=== PATIENT | male | born 1960 | race African-American/Black ===

== ENCOUNTER 2021-03-29 01:40 | Inpatient (IN) | payer MEDICAID ==
[~2021-03-29] VITALS: Ht 182.9 cm; Wt 99.8 kg
[2021-03-29] VITALS (71 sets, daily range): BP systolic 100–186; BP diastolic 50–97
[2021-03-29] MEDS: LEVETIRACETAM 500MG PREMIX 100 ML IV SCH ×3 (00:50→22:00)
[2021-03-29] MEDS ORDERED: NALOXONE HCL 1 MG/ML 2ML VIAL IV ONE (01:45)
[2021-03-29] MEDS ORDERED: ONDANSETRON HCL 4MG/2ML INJ IV STA (01:47)
[2021-03-29] MEDS ORDERED: NALOXONE HCL 0.4 MG/ML 1ML VIAL IV PRN (02:00)
[2021-03-29] MEDS ORDERED: NICARDIPINE 100 MG in SODIUM CHLORIDE 0.9% 60 ML IV ONE ×2 (02:00→02:15)
[2021-03-29] MEDS ORDERED: SODIUM CHLORIDE 0.9% 1,000 ML IV ONE (02:00)
[2021-03-29] MEDS ORDERED: LABETALOL 5MG/ML SYR 20 MG/4 ML SYRINGE IV ONE ×2 (02:00→02:15)
[2021-03-29] MEDS ORDERED: LEVETIRACETAM 500MG PREMIX 100 ML IV ONE (02:00)
[2021-03-29] MEDS ORDERED: ETOMIDATE 2MG/ML 10ML VIAL IV ONE ×2 (02:00→08:49)
[2021-03-29] MEDS ORDERED: PROPOFOL 10MG/ML 100ML 100 ML IV ONE (02:00)
[2021-03-29] MEDS ORDERED: SUCCINYLCHOLINE CHLORIDE 200MG/10ML IV ONE ×2 (02:00→08:49)
[2021-03-29] MEDS ORDERED: VECURONIUM BROMIDE 10 MG/VIAL IV ONE ×2 (02:15→08:49)
[2021-03-29 02:32] LABS: BASOPHILS % 0.4 % (0.0-2.0); EOSINOPHILS % 0.2 % (0.0-5.0); HEMATOCRIT. 41.4 % (42.0-52.0); HEMOGLOBIN. 13.6 g/dL (14.0-18.0); LYMPHOCYTES % 21.1 % (20.0-50.0); MEAN CORPUSCULAR HEMOGLOBIN 30.4 pg (28.0-32.0); MEAN CORPUSCULAR VOLUME 92.5 fL (80.0-94.0); MEAN PLATELET VOLUME 7.7 fl (7.4-10.4); MONOCYTES % 10.7 % (2.0-8.0); NEUTROPHILS % 67.6 % (40.0-76.0); PLATELET 307 x1000/uL (130-400); RED BLOOD CELL COUNT 4.48 mill/uL (4.7-6.1); RED CELL DISTRIBUTION WIDTH 15.4 % (11.6-14.6)
[2021-03-29 02:38] LABS: PROTHROMBIN TIME 11.2 sec (9.6-11.0)
[2021-03-29 02:40] LABS: CHLORIDE 109 mEq/L (98-107)
[2021-03-29] MEDS ORDERED: NITROPRUSSIDE 50 MG in DEXT 5% WATER 248 ML IV STA (02:40)
[2021-03-29 02:44] LABS: ETHANOL BLOOD < 10 mg/dL
[2021-03-29] MEDS ORDERED: MANNITOL 20% 250 ML IV ONE (02:45)
[2021-03-29] MEDS ORDERED: DEXAMETHASONE 10 MG/ML VIAL IV ONE (02:45)
[2021-03-29] MEDS ORDERED: NITROPRUSSIDE 50 MG in DEXT 5% WATER 248 ML IV SCH (03:00)
[2021-03-29 03:15] LABS: BG BASE EXCESS 1.4 mmol/L (-2.0-2.0); BG CARBOXYHEMOGLOBIN 4.4 % (0.5-1.5); BG DEOXYHEMOGLOBIN 0.4 % (0.0-5.0); BG FRACTION INSPIRED OXYGEN 100; BG HCO3 ACT 26.3 mmol/L (22.0-26.0); BG METHEMOGLOBIN 0.3 % (0.0-1.5); BG OXYGEN SATURATION 99.6 % (92.0-98.5); BG OXYHEMOGLOBIN 94.9 % (94.0-97.0); BG PCO2 42.4 mmHg (35.0-45.0); BG PO2 352.5 mmHg (75.0-100.0); BG SAMPLE SITE RIGHT RADIAL; BG TOTAL HEMOGLOBIN 13.9 g/dL (12.0-18.0); BG VENT MODE VENT - AC
[2021-03-29] MEDS ORDERED: MANNITOL 12.5G (25%) VIAL 50ML IV SCH (03:15)
[2021-03-29] MEDS ORDERED: PROPOFOL 10MG/ML 100ML 100 ML IV PRN (03:15)
[2021-03-29] MEDS ORDERED: NICARDIPINE 40MG/200ML PREMIX 200 ML IV PRN (03:45)
[2021-03-29] MEDS ORDERED: SODIUM CHLORIDE 0.9% 1,000 ML IV SCH (03:45)
[2021-03-29 03:48] LABS: CLARITY URINE CLEAR (CLEAR); COLOR URINE YELLOW (YELLOW); KETONES URINE TRACE (NEGATIVE); LEUKOCYTE ESTERASE URINE NEGATIVE (NEGATIVE); NITRITE URINE NEGATIVE (NEGATIVE); OCCULT BLOOD URINE NEGATIVE (NEGATIVE); PH URINE 7.5 (4.5-8.0); PROTEIN URINE NEGATIVE (NEGATIVE); SPECIFIC GRAVITY URINE 1.011 (1.005-1.030); UROBILINOGEN URINE 0.2 E.U./dL (0.2-1.0)
[2021-03-29 04:10] LABS: *AMPHETAMINES SCREEN URINE NEGATIVE (NEGATIVE); *BARBITURATES SCREEN URINE NEGATIVE (NEGATIVE)
[2021-03-29 04:11] LABS: *BENZODIAZEPINES SCREEN URINE NEGATIVE (NEGATIVE); *COCAINE SCREEN URINE PRESUMTIVE POSITIVE (NEGATIVE); CANNABINOID URINE SCREEN NEGATIVE (NEGATIVE); METHADONE URINE SCREEN NEGATIVE (NEGATIVE); OPIATES URINE SCREEN NEGATIVE (NEGATIVE); PHENCYCLIDINE URINE SCREEN NEGATIVE (NEGATIVE)
[2021-03-29 05:14] LABS: HEMATOCRIT. 39.8 % (42.0-52.0); HEMOGLOBIN. 13.2 g/dL (14.0-18.0); MEAN CORPUSCULAR HEMOGLOBIN 30.7 pg (28.0-32.0); MEAN CORPUSCULAR VOLUME 92.7 fL (80.0-94.0); MEAN PLATELET VOLUME 7.7 fl (7.4-10.4); PLATELET 259 x1000/uL (130-400); RED BLOOD CELL COUNT 4.29 mill/uL (4.7-6.1); RED CELL DISTRIBUTION WIDTH 14.9 % (11.6-14.6)
[2021-03-29 05:21] LABS: PHOSPHORUS 2.1 mg/dL (2.5-4.9)
[2021-03-29] MEDS: DEXT 5%/LACTATED RINGERS 1,000 ML IV SCH ×2 (06:00→20:00)
[2021-03-29] MEDS ORDERED: NICARDIPINE 100 MG in SODIUM CHLORIDE 0.9% 60 ML IV PRN (06:00)
[2021-03-29] MEDS: DEXAMETHASONE 4MG/ML 1ML VIAL IV SCH ×3 (06:44→17:48)
[2021-03-29] MEDS ORDERED: MORPHINE SULFATE 4 MG/ML CPJ (NOT FOR IM USE) IV ONE (07:53)
[2021-03-29 07:56] LABS: PLATELET ESTIMATE NORMAL
[2021-03-29] MEDS ORDERED: GENTAMICIN SULF 40MG/ML 2ML VIAL ONE (08:00)
[2021-03-29] MEDS ORDERED: MANNITOL 20% (20GM/100ML) BAG 500ML PREMIX IV SCH (08:00)
[2021-03-29] MEDS ORDERED: MANNITOL 20% 500 ML IV SCH (08:00)
[2021-03-29] MEDS ORDERED: LACTATED RINGERS 3,000 ML IV ONE (08:01)
[2021-03-29] MEDS ORDERED: BACITRACIN 15GM TUBE TOP ONE (08:01)
[2021-03-29] MEDS ORDERED: THROMBIN (BOVINE) 5000 UNITS/VIAL TOP ONE (08:01)
[2021-03-29] MEDS ORDERED: LIDOCAINE HCL/EPINEPHRINE 1%-EPI 1:100,000 20 ML VIAL ONE (08:01)
[2021-03-29] MEDS ORDERED: SODIUM CHLORIDE 0.9% 10ML VIAL ONE (08:49)
[2021-03-29] MEDS ORDERED: MANNITOL 20% 0 ML IV ONE (09:01)
[2021-03-29] MEDS ORDERED: DEXAMETHASONE 4MG/ML 1ML VIAL ONE (09:10)
[2021-03-29] MEDS: MORPHINE SULFATE 2 MG/ML CPJ (NOT FOR IM USE) IV PRN ×4 (10:22→23:45)
[2021-03-29] MEDS: PROPOFOL 10MG/ML 100ML 100 ML IV PRN ×4 (10:28→20:18)
[2021-03-29] MEDS: NICARDIPINE 100 MG in SODIUM CHLORIDE 0.9% 60 ML IV PRN ×2 (10:29→20:13)
[2021-03-29] MEDS: CEFAZOLIN 1000MG PREMIX 50 ML IV SCH ×2 (11:08→18:46)
[2021-03-29] MEDS: PANTOPRAZOLE SODIUM 40 MG/VIAL IV SCH (11:08)
[2021-03-29] MEDS ORDERED: BLOOD SUGAR DIAGNOSTIC STRIP TEST SCH (11:30)
[2021-03-29] MEDS ORDERED: DEXTROSE 50% WATER 50ML SYRINGE IV PRN (11:30)
[2021-03-29] MEDS: BLOOD SUGAR DIAGNOSTIC STRIP TEST SCH ×2 (11:47→17:44)
[2021-03-29] MEDS: INSULIN LISPRO 100 UNITS/ML SUBCUT SCH ×2 (11:53→17:44)
[2021-03-29] MEDS ORDERED: INSULIN LISPRO 100 UNITS/ML SUBCUT SCH (12:00)
[2021-03-29] MEDS ORDERED: CEFAZOLIN SODIUM 1000MG/VIAL IV SCH (14:00)
[2021-03-29] MEDS ORDERED: NALOXONE HCL 0.4MG/ML VIAL IV PRN (21:15)
[2021-03-30] VITALS (97 sets, daily range): BP systolic 82–169; BP diastolic 47–80
[2021-03-30] MEDS: DEXAMETHASONE 4MG/ML 1ML VIAL IV SCH ×4 (01:00→17:20)
[2021-03-30] MEDS: PROPOFOL 10MG/ML 100ML 100 ML IV PRN ×8 (01:50→21:14)
[2021-03-30] MEDS: CEFAZOLIN 1000MG PREMIX 50 ML IV SCH ×3 (03:43→17:56)
[2021-03-30] MEDS: NICARDIPINE 100 MG in SODIUM CHLORIDE 0.9% 60 ML IV PRN ×3 (04:00→18:59)
[2021-03-30] MEDS: MORPHINE SULFATE 2 MG/ML CPJ (NOT FOR IM USE) IV PRN ×2 (04:21→16:49)
[2021-03-30 05:50] LABS: HEMATOCRIT. 35.1 % (42.0-52.0); HEMOGLOBIN. 11.4 g/dL (14.0-18.0); MEAN CORPUSCULAR HEMOGLOBIN 30.1 pg (28.0-32.0); MEAN CORPUSCULAR VOLUME 92.5 fL (80.0-94.0); PLATELET 244 x1000/uL (130-400); RED BLOOD CELL COUNT 3.79 mill/uL (4.7-6.1)
[2021-03-30] MEDS: INSULIN LISPRO 100 UNITS/ML SUBCUT SCH ×4 (06:00→17:03)
[2021-03-30] MEDS: BLOOD SUGAR DIAGNOSTIC STRIP TEST SCH ×4 (06:00→17:03)
[2021-03-30] MEDS ORDERED: MORPHINE SULFATE 2 MG/ML CPJ (NOT FOR IM USE) IV SCH (06:15)
[2021-03-30] MEDS: IPRATROPIUM/ALBUTEROL 0.5-3(2.5)MG/3ML NEB HHN PRN ×3 (08:25→16:39)
[2021-03-30] MEDS: LEVETIRACETAM 500MG PREMIX 100 ML IV SCH ×2 (09:53→21:12)
[2021-03-30] MEDS: PANTOPRAZOLE SODIUM 40 MG/VIAL IV SCH (09:53)
[2021-03-30 10:01] LABS: BG BASE EXCESS -2.6 mmol/L (-2.0-2.0); BG CARBOXYHEMOGLOBIN 0.6 % (0.5-1.5); BG FRACTION INSPIRED OXYGEN 40; BG HCO3 ACT 21.6 mmol/L (22.0-26.0); BG METHEMOGLOBIN 0.1 % (0.0-1.5); BG OXYHEMOGLOBIN 98.3 % (94.0-97.0); BG PCO2 35.4 mmHg (35.0-45.0); BG PH 7.403 (7.350-7.450); BG PO2 147.7 mmHg (75.0-100.0); BG TOTAL HEMOGLOBIN 11.8 g/dL (12.0-18.0); BG VENT MODE VENT - AC
[2021-03-30] MEDS: DEXT 5%/LACTATED RINGERS 1,000 ML IV SCH (12:09)
[2021-03-30 14:44] LABS: PLATELET ESTIMATE NORMAL
[2021-03-30] MEDS: HYDRALAZINE 20MG/ML VIAL IV PRN (17:20)
[2021-03-31] VITALS (100 sets, daily range): BP systolic 95–150; BP diastolic 50–96
[2021-03-31] MEDS: BLOOD SUGAR DIAGNOSTIC STRIP TEST SCH ×5 (00:13→23:43)
[2021-03-31] MEDS: DEXAMETHASONE 4MG/ML 1ML VIAL IV SCH ×3 (00:17→12:17)
[2021-03-31] MEDS: CEFAZOLIN 1000MG PREMIX 50 ML IV SCH ×3 (02:11→18:17)
[2021-03-31] MEDS: PROPOFOL 10MG/ML 100ML 100 ML IV PRN ×7 (02:11→23:42)
[2021-03-31] MEDS: INSULIN LISPRO 100 UNITS/ML SUBCUT SCH ×5 (05:26→23:43)
[2021-03-31] MEDS: DEXT 5%/LACTATED RINGERS 1,000 ML IV SCH ×2 (05:29→15:38)
[2021-03-31 06:22] LABS: HEMATOCRIT. 34.3 % (42.0-52.0); HEMOGLOBIN. 10.9 g/dL (14.0-18.0); MEAN CORPUSCULAR HEMOGLOBIN 29.6 pg (28.0-32.0); MEAN CORPUSCULAR VOLUME 93.1 fL (80.0-94.0); MEAN PLATELET VOLUME 8.3 fl (7.4-10.4); PLATELET 204 x1000/uL (130-400); RED BLOOD CELL COUNT 3.69 mill/uL (4.7-6.1); RED CELL DISTRIBUTION WIDTH 15.3 % (11.6-14.6)
[2021-03-31] MEDS ORDERED: LIDOCAINE HCL 1% 30ML VIAL (10MG/ML) ONE (08:05)
[2021-03-31] MEDS: LEVETIRACETAM 500MG PREMIX 100 ML IV SCH ×2 (08:09→20:29)
[2021-03-31] MEDS: PANTOPRAZOLE SODIUM 40 MG/VIAL IV SCH (08:09)
[2021-03-31 11:08] LABS: PLATELET ESTIMATE NORMAL
[2021-03-31] MEDS: NICARDIPINE 100 MG in SODIUM CHLORIDE 0.9% 60 ML IV PRN ×2 (13:43→22:07)
[2021-03-31] MEDS: MORPHINE SULFATE 2 MG/ML CPJ (NOT FOR IM USE) IV PRN (20:29)
[2021-04-01] VITALS (80 sets, daily range): BP systolic 106–175; BP diastolic 51–85
[2021-04-01] MEDS: CEFAZOLIN 1000MG PREMIX 50 ML IV SCH ×3 (03:11→18:48)
[2021-04-01] MEDS: PROPOFOL 10MG/ML 100ML 100 ML IV PRN ×7 (03:12→22:19)
[2021-04-01 05:51] LABS: HEMATOCRIT. 34.8 % (42.0-52.0); HEMOGLOBIN. 11.5 g/dL (14.0-18.0); MEAN CORPUSCULAR HEMOGLOBIN 31.2 pg (28.0-32.0); MEAN CORPUSCULAR VOLUME 93.9 fL (80.0-94.0); MEAN PLATELET VOLUME 8.2 fl (7.4-10.4); PLATELET 201 x1000/uL (130-400); RED CELL DISTRIBUTION WIDTH 15.1 % (11.6-14.6)
[2021-04-01] MEDS: INSULIN LISPRO 100 UNITS/ML SUBCUT SCH ×4 (06:00→23:23)
[2021-04-01] MEDS: BLOOD SUGAR DIAGNOSTIC STRIP TEST SCH ×4 (06:03→23:23)
[2021-04-01] MEDS: NICARDIPINE 100 MG in SODIUM CHLORIDE 0.9% 60 ML IV PRN ×3 (06:04→18:17)
[2021-04-01] MEDS: PANTOPRAZOLE SODIUM 40 MG/VIAL IV SCH (08:50)
[2021-04-01] MEDS: HYDRALAZINE 20MG/ML VIAL IV PRN (08:50)
[2021-04-01] MEDS: LEVETIRACETAM 500MG PREMIX 100 ML IV SCH ×2 (08:51→21:02)
[2021-04-01] MEDS: MORPHINE SULFATE 2 MG/ML CPJ (NOT FOR IM USE) IV PRN (10:23)
[2021-04-01] MEDS: DEXT 5%/LACTATED RINGERS 1,000 ML IV SCH (11:35)
[2021-04-01 13:50] LABS: PLATELET ESTIMATE NORMAL
[2021-04-02] VITALS (100 sets, daily range): BP systolic 92–167; BP diastolic -9–89
[2021-04-02] MEDS: PROPOFOL 10MG/ML 100ML 100 ML IV PRN ×7 (00:40→20:09)
[2021-04-02] MEDS: CEFAZOLIN 1000MG PREMIX 50 ML IV SCH ×3 (02:00→18:03)
[2021-04-02] MEDS: MORPHINE SULFATE 2 MG/ML CPJ (NOT FOR IM USE) IV PRN ×7 (02:25→23:29)
[2021-04-02] MEDS: HYDRALAZINE 20MG/ML VIAL IV PRN ×5 (02:58→21:57)
[2021-04-02] MEDS: NICARDIPINE 100 MG in SODIUM CHLORIDE 0.9% 60 ML IV PRN ×3 (03:38→18:04)
[2021-04-02] MEDS: INSULIN LISPRO 100 UNITS/ML SUBCUT SCH ×4 (06:00→23:46)
[2021-04-02] MEDS: BLOOD SUGAR DIAGNOSTIC STRIP TEST SCH ×4 (06:25→23:45)
[2021-04-02 08:11] LABS: CHLORIDE 121 mEq/L (98-107)
[2021-04-02 08:29] LABS: BG BASE EXCESS 0.9 mmol/L (-2.0-2.0); BG CARBOXYHEMOGLOBIN 0.3 % (0.5-1.5); BG DEOXYHEMOGLOBIN 1.8 % (0.0-5.0); BG HCO3 ACT 24.4 mmol/L (22.0-26.0); BG METHEMOGLOBIN 0.3 % (0.0-1.5); BG OXYGEN SATURATION 98.2 % (92.0-98.5); BG OXYHEMOGLOBIN 97.6 % (94.0-97.0); BG PCO2 35.3 mmHg (35.0-45.0); BG PH 7.458 (7.350-7.450); BG PO2 112.9 mmHg (75.0-100.0); BG SAMPLE SITE ALINE; BG TOTAL HEMOGLOBIN 12.5 g/dL (12.0-18.0); BG VENT MODE VENT - AC
[2021-04-02] MEDS: PANTOPRAZOLE SODIUM 40 MG/VIAL IV SCH (10:38)
[2021-04-02] MEDS: ENALAPRIL 2.5MG TABLET PO SCH ×2 (10:39→20:08)
[2021-04-02] MEDS: DEXT 5%/LACTATED RINGERS 1,000 ML IV SCH ×2 (10:40→23:55)
[2021-04-02] MEDS: LEVETIRACETAM 500MG PREMIX 100 ML IV SCH ×2 (10:40→20:08)
[2021-04-02] MEDS: DOCUSATE SODIUM SUGAR FREE 100MG/10ML UDC NG SCH (17:54)
[2021-04-03] VITALS (101 sets, daily range): BP systolic 95–170; BP diastolic 42–80
[2021-04-03] MEDS: PROPOFOL 10MG/ML 100ML 100 ML IV PRN ×7 (00:05→20:14)
[2021-04-03] MEDS: CEFAZOLIN 1000MG PREMIX 50 ML IV SCH ×2 (02:01→11:41)
[2021-04-03] MEDS: HYDRALAZINE 20MG/ML VIAL IV PRN ×3 (02:49→13:03)
[2021-04-03] MEDS: NICARDIPINE 100 MG in SODIUM CHLORIDE 0.9% 60 ML IV PRN ×4 (03:01→23:58)
[2021-04-03] MEDS ORDERED: MORPHINE SULFATE 2 MG/ML CPJ (NOT FOR IM USE) IV PRN (05:00)
[2021-04-03] MEDS: INSULIN LISPRO 100 UNITS/ML SUBCUT SCH ×4 (06:00→23:16)
[2021-04-03] MEDS: BLOOD SUGAR DIAGNOSTIC STRIP TEST SCH ×4 (06:06→23:16)
[2021-04-03 06:28] LABS: BASOPHILS % 0.1 % (0.0-2.0); EOSINOPHILS % 0.1 % (0.0-5.0); HEMATOCRIT. 35.4 % (42.0-52.0); HEMOGLOBIN. 11.4 g/dL (14.0-18.0); LYMPHOCYTES % 8.8 % (20.0-50.0); MEAN CORPUSCULAR HEMOGLOBIN 30.1 pg (28.0-32.0); MEAN CORPUSCULAR VOLUME 93.8 fL (80.0-94.0); MEAN PLATELET VOLUME 8.6 fl (7.4-10.4); MONOCYTES % 11.4 % (2.0-8.0); NEUTROPHILS % 79.6 % (40.0-76.0); PLATELET 170 x1000/uL (130-400); RED BLOOD CELL COUNT 3.77 mill/uL (4.7-6.1); RED CELL DISTRIBUTION WIDTH 14.8 % (11.6-14.6)
[2021-04-03 07:17] LABS: CHLORIDE 118 mEq/L (98-107)
[2021-04-03] MEDS: DOCUSATE SODIUM SUGAR FREE 100MG/10ML UDC NG SCH (08:43)
[2021-04-03] MEDS: ENALAPRIL 2.5MG TABLET PO SCH (08:44)
[2021-04-03] MEDS: LEVETIRACETAM 500MG PREMIX 100 ML IV SCH ×2 (08:44→21:40)
[2021-04-03] MEDS: PANTOPRAZOLE SODIUM 40 MG/VIAL IV SCH (09:22)
[2021-04-03 10:02] LABS: BG BASE EXCESS -4.1 mmol/L (-2.0-2.0); BG CARBOXYHEMOGLOBIN 1.1 % (0.5-1.5); BG DEOXYHEMOGLOBIN 1.8 % (0.0-5.0); BG FRACTION INSPIRED OXYGEN 40; BG METHEMOGLOBIN 0.2 % (0.0-1.5); BG OXYGEN SATURATION 98.2 % (92.0-98.5); BG OXYHEMOGLOBIN 96.9 % (94.0-97.0); BG PCO2 29.5 mmHg (35.0-45.0); BG PH 7.426 (7.350-7.450); BG PO2 120.9 mmHg (75.0-100.0); BG SAMPLE SITE ALINE; BG VENT MODE VENT - AC
[2021-04-03] MEDS: METOCLOPRAMIDE HCL 10MG/2ML VIAL IV SCH ×3 (11:41→23:26)
[2021-04-03] MEDS: MORPHINE SULFATE 2 MG/ML CPJ (NOT FOR IM USE) IV PRN ×2 (12:10→16:25)
[2021-04-03] MEDS ORDERED: PROPOFOL 10MG/ML 100ML 100 ML IV PRN (12:30)
[2021-04-03] MEDS: DEXTROSE 5% WATER 1,000 ML IV SCH (13:02)
[2021-04-03] MEDS: LACTULOSE 20G/30ML UDC PO PRN (13:03)
[2021-04-03] MEDS: HYDRALAZINE HCL 25MG TABLET PO SCH ×2 (13:03→21:40)
[2021-04-03] MEDS: ENALAPRIL 5MG TABLET PO SCH (21:40)
[2021-04-04] VITALS (99 sets, daily range): BP systolic 107–151; BP diastolic 60–91
[2021-04-04] MEDS: PROPOFOL 10MG/ML 100ML 100 ML IV PRN ×8 (00:03→18:34)
[2021-04-04] MEDS: HYDRALAZINE 20MG/ML VIAL IV PRN ×4 (01:37→18:21)
[2021-04-04] MEDS: MORPHINE SULFATE 2 MG/ML CPJ (NOT FOR IM USE) IV PRN ×5 (01:58→18:23)
[2021-04-04] MEDS: DEXTROSE 5% WATER 1,000 ML IV SCH ×2 (04:10→22:20)
[2021-04-04] MEDS: BLOOD SUGAR DIAGNOSTIC STRIP TEST SCH ×3 (05:32→18:23)
[2021-04-04] MEDS: METOCLOPRAMIDE HCL 10MG/2ML VIAL IV SCH ×2 (05:32→12:51)
[2021-04-04] MEDS: INSULIN LISPRO 100 UNITS/ML SUBCUT SCH ×3 (05:32→18:00)
[2021-04-04] MEDS: HYDRALAZINE HCL 25MG TABLET PO SCH ×3 (05:32→22:18)
[2021-04-04 07:18] LABS: BASOPHILS % 0.3 % (0.0-2.0); EOSINOPHILS % 0.5 % (0.0-5.0); HEMATOCRIT. 35.2 % (42.0-52.0); HEMOGLOBIN. 11.2 g/dL (14.0-18.0); LYMPHOCYTES % 7.1 % (20.0-50.0); MEAN CORPUSCULAR HEMOGLOBIN 30.2 pg (28.0-32.0); MEAN PLATELET VOLUME 8.6 fl (7.4-10.4); MONOCYTES % 12.2 % (2.0-8.0); NEUTROPHILS % 79.9 % (40.0-76.0); PLATELET 158 x1000/uL (130-400)
[2021-04-04] MEDS: NICARDIPINE 100 MG in SODIUM CHLORIDE 0.9% 60 ML IV PRN ×3 (07:24→18:17)
[2021-04-04] MEDS: IPRATROPIUM/ALBUTEROL 0.5-3(2.5)MG/3ML NEB HHN PRN ×2 (07:59→15:16)
[2021-04-04 08:06] LABS: CHLORIDE 118 mEq/L (98-107)
[2021-04-04] MEDS: PANTOPRAZOLE SODIUM 40 MG/VIAL IV SCH (08:21)
[2021-04-04] MEDS: LEVETIRACETAM 500MG PREMIX 100 ML IV SCH ×2 (08:21→22:17)
[2021-04-04] MEDS: ENALAPRIL 5MG TABLET PO SCH ×2 (08:21→22:18)
[2021-04-04] MEDS: DOCUSATE SODIUM SUGAR FREE 100MG/10ML UDC NG SCH (08:21)
[2021-04-04] MEDS: ACETAMINOPHEN 650MG/20.3ML UDC PO PRN ×2 (09:51→18:21)
[2021-04-04] MEDS: CEFEPIME 1,000 MG in DEXT 5% WATER 100 ML IV SCH (13:04)
[2021-04-04] MEDS: LACTULOSE 20G/30ML UDC PO PRN (14:51)
[2021-04-04] MEDS: LABETALOL 5MG/ML SYR 20 MG/4 ML SYRINGE IV PRN (16:06)
[2021-04-05] VITALS (99 sets, daily range): BP systolic 99–158; BP diastolic 57–96
[2021-04-05] MEDS: PROPOFOL 10MG/ML 100ML 100 ML IV PRN ×6 (00:33→23:06)
[2021-04-05] MEDS: CEFEPIME 1,000 MG in DEXT 5% WATER 100 ML IV SCH (01:09)
[2021-04-05] MEDS: BLOOD SUGAR DIAGNOSTIC STRIP TEST SCH ×5 (05:44→23:43)
[2021-04-05] MEDS: HYDRALAZINE HCL 25MG TABLET PO SCH ×3 (05:44→22:48)
[2021-04-05] MEDS: INSULIN LISPRO 100 UNITS/ML SUBCUT SCH ×5 (05:44→23:43)
[2021-04-05] MEDS: ACETAMINOPHEN 650MG/20.3ML UDC PO PRN ×3 (05:46→20:17)
[2021-04-05 05:48] LABS: BASOPHILS % 0.5 % (0.0-2.0); EOSINOPHILS % 1.1 % (0.0-5.0); HEMATOCRIT. 30.9 % (42.0-52.0); LYMPHOCYTES % 7.1 % (20.0-50.0); MEAN CORPUSCULAR HEMOGLOBIN 30.3 pg (28.0-32.0); MEAN CORPUSCULAR VOLUME 93.6 fL (80.0-94.0); MEAN PLATELET VOLUME 8.9 fl (7.4-10.4); MONOCYTES % 13.7 % (2.0-8.0); NEUTROPHILS % 77.6 % (40.0-76.0); PLATELET 164 x1000/uL (130-400); RED CELL DISTRIBUTION WIDTH 15.2 % (11.6-14.6)
[2021-04-05] MEDS: HYDRALAZINE 20MG/ML VIAL IV PRN ×3 (06:05→13:10)
[2021-04-05] MEDS: NICARDIPINE 100 MG in SODIUM CHLORIDE 0.9% 60 ML IV PRN ×2 (07:59→11:36)
[2021-04-05] MEDS: DOCUSATE SODIUM SUGAR FREE 100MG/10ML UDC NG SCH (08:18)
[2021-04-05] MEDS: PANTOPRAZOLE SODIUM 40 MG/VIAL IV SCH (08:18)
[2021-04-05] MEDS: ENALAPRIL 5MG TABLET PO SCH ×2 (08:19→20:17)
[2021-04-05] MEDS: LEVETIRACETAM 500MG PREMIX 100 ML IV SCH ×2 (08:19→20:17)
[2021-04-05] MEDS: MORPHINE SULFATE 2 MG/ML CPJ (NOT FOR IM USE) IV PRN ×2 (08:35→13:15)
[2021-04-05] MEDS: LABETALOL 5MG/ML SYR 20 MG/4 ML SYRINGE IV PRN (08:36)
[2021-04-05 09:47] LABS: BG BASE EXCESS -4.4 mmol/L (-2.0-2.0); BG CARBOXYHEMOGLOBIN 1.3 % (0.5-1.5); BG DEOXYHEMOGLOBIN 0.4 % (0.0-5.0); BG FRACTION INSPIRED OXYGEN 35; BG HCO3 ACT 18.7 mmol/L (22.0-26.0); BG METHEMOGLOBIN 0.2 % (0.0-1.5); BG OXYGEN SATURATION 99.6 % (92.0-98.5); BG OXYHEMOGLOBIN 98.1 % (94.0-97.0); BG PCO2 28.2 mmHg (35.0-45.0); BG PH 7.439 (7.350-7.450); BG PO2 173.8 mmHg (75.0-100.0); BG SAMPLE SITE RIGHT RADIAL; BG TOTAL HEMOGLOBIN 11.1 g/dL (12.0-18.0); BG VENT MODE VENT - AC
[2021-04-05] MEDS: LACTULOSE 20G/30ML UDC PO PRN ×2 (13:09→21:54)
[2021-04-05] MEDS: CEFEPIME 2,000 MG in DEXT 5% WATER 100 ML IV SCH (13:09)
[2021-04-05] MEDS: LABETALOL HCL 100MG TABLET PO SCH ×2 (13:11→21:00)
[2021-04-05] MEDS: DEXTROSE 5% WATER 1,000 ML IV SCH (13:12)
[2021-04-05] MEDS: DEXT 5%/0.45% NACL 1000ML 1,000 ML IV SCH (16:55)
[2021-04-05 18:00] LABS: CLARITY URINE TURBID (CLEAR); COLOR URINE DARK YELLOW (YELLOW); KETONES URINE TRACE (NEGATIVE); LEUKOCYTE ESTERASE URINE 1+ (NEGATIVE); NITRITE URINE POSITIVE (NEGATIVE); OCCULT BLOOD URINE 1+ (NEGATIVE); PROTEIN URINE 1+ (NEGATIVE); SPECIFIC GRAVITY URINE 1.024 (1.005-1.030); UROBILINOGEN URINE 0.2 E.U./dL (0.2-1.0)
[2021-04-05] MEDS ORDERED: VANCOMYCIN 2,000 MG in DEXT 5% WATER 500 ML IV NR (19:30)
[2021-04-06] VITALS (94 sets, daily range): BP systolic 102–169; BP diastolic 55–110
[2021-04-06] MEDS: CEFEPIME 2,000 MG in DEXT 5% WATER 100 ML IV SCH ×3 (00:18→23:28)
[2021-04-06] MEDS: HYDRALAZINE 20MG/ML VIAL IV PRN ×3 (00:18→08:01)
[2021-04-06] MEDS: MORPHINE SULFATE 2 MG/ML CPJ (NOT FOR IM USE) IV PRN ×4 (02:56→20:49)
[2021-04-06] MEDS: BLOOD SUGAR DIAGNOSTIC STRIP TEST SCH ×4 (05:15→23:28)
[2021-04-06] MEDS: INSULIN LISPRO 100 UNITS/ML SUBCUT SCH ×4 (05:15→23:28)
[2021-04-06] MEDS: HYDRALAZINE HCL 25MG TABLET PO SCH ×3 (05:16→22:16)
[2021-04-06 06:00] LABS: HEMATOCRIT. 30.9 % (42.0-52.0); HEMOGLOBIN. 9.8 g/dL (14.0-18.0); MEAN CORPUSCULAR HEMOGLOBIN 30.4 pg (28.0-32.0); MEAN CORPUSCULAR VOLUME 96.1 fL (80.0-94.0); MEAN PLATELET VOLUME 9.2 fl (7.4-10.4); PLATELET 184 x1000/uL (130-400); RED BLOOD CELL COUNT 3.22 mill/uL (4.7-6.1); RED CELL DISTRIBUTION WIDTH 15.4 % (11.6-14.6)
[2021-04-06] MEDS: PROPOFOL 10MG/ML 100ML 100 ML IV PRN ×6 (06:01→23:53)
[2021-04-06] MEDS: DOCUSATE SODIUM SUGAR FREE 100MG/10ML UDC NG SCH (08:39)
[2021-04-06] MEDS: PANTOPRAZOLE SODIUM 40 MG/VIAL IV SCH (08:39)
[2021-04-06] MEDS: LEVETIRACETAM 500MG PREMIX 100 ML IV SCH ×2 (08:39→20:12)
[2021-04-06] MEDS: LABETALOL HCL 100MG TABLET PO SCH ×2 (08:40→20:16)
[2021-04-06] MEDS: ENALAPRIL 5MG TABLET PO SCH (08:40)
[2021-04-06] MEDS: DEXT 5%/0.45% NACL 1000ML 1,000 ML IV SCH (08:40)
[2021-04-06] MEDS: DEXT 5%/0.9% NACL 1,000 ML IV SCH (11:43)
[2021-04-06 12:11] LABS: PLATELET ESTIMATE NORMAL
[2021-04-06] MEDS ORDERED: VANCOMYCIN 1 G PREMIX 200 ML IV SCH (15:00)
[2021-04-06] MEDS: ACETAMINOPHEN 650MG/20.3ML UDC PO PRN ×2 (16:57→23:18)
[2021-04-07] VITALS (101 sets, daily range): BP systolic 107–174; BP diastolic 67–103
[2021-04-07] MEDS: DEXT 5%/0.9% NACL 1,000 ML IV SCH ×2 (01:09→13:33)
[2021-04-07] MEDS: PROPOFOL 10MG/ML 100ML 100 ML IV PRN ×7 (03:26→21:23)
[2021-04-07] MEDS: HYDRALAZINE 20MG/ML VIAL IV PRN ×4 (03:29→19:38)
[2021-04-07] MEDS: MORPHINE SULFATE 2 MG/ML CPJ (NOT FOR IM USE) IV PRN ×5 (04:44→17:27)
[2021-04-07 05:30] LABS: HEMATOCRIT. 26.1 % (42.0-52.0); HEMOGLOBIN. 8.5 g/dL (14.0-18.0); MEAN CORPUSCULAR HEMOGLOBIN 30.4 pg (28.0-32.0); MEAN CORPUSCULAR VOLUME 93.4 fL (80.0-94.0); RED BLOOD CELL COUNT 2.79 mill/uL (4.7-6.1)
[2021-04-07] MEDS: BLOOD SUGAR DIAGNOSTIC STRIP TEST SCH ×4 (05:55→23:57)
[2021-04-07] MEDS: INSULIN LISPRO 100 UNITS/ML SUBCUT SCH ×3 (05:55→17:24)
[2021-04-07] MEDS: HYDRALAZINE HCL 25MG TABLET PO SCH ×3 (06:20→21:36)
[2021-04-07] MEDS: DOCUSATE SODIUM SUGAR FREE 100MG/10ML UDC NG SCH (08:08)
[2021-04-07] MEDS: ACETAMINOPHEN 650MG/20.3ML UDC PO PRN (08:08)
[2021-04-07] MEDS: PANTOPRAZOLE SODIUM 40 MG/VIAL IV SCH (08:08)
[2021-04-07] MEDS: LEVETIRACETAM 500MG PREMIX 100 ML IV SCH ×2 (08:10→20:34)
[2021-04-07] MEDS: LABETALOL HCL 100MG TABLET PO SCH ×2 (08:11→20:34)
[2021-04-07 09:57] LABS: MEAN PLATELET VOLUME 9.9 fl (7.4-10.4); PLATELET 170 x1000/uL (130-400)
[2021-04-07 10:15] LABS: PLATELET ESTIMATE NORMAL
[2021-04-07] MEDS: CEFEPIME 2,000 MG in DEXT 5% WATER 100 ML IV SCH (12:16)
[2021-04-07] MEDS: VANCOMYCIN 1250MG in DEXTROSE 5% WATER 250ML IV SCH (12:16)
[2021-04-07] MEDS: MEROPENEM 1,000 MG in SODIUM CHLORIDE 0.9% 100 ML IV SCH (15:02)
[2021-04-07] MEDS: NICARDIPINE 100 MG in SODIUM CHLORIDE 0.9% 60 ML IV PRN (18:07)
[2021-04-07] MEDS: SENNOSIDES/DOCUSATE SOD 8.6/50MG TABLET NG SCH (20:34)
[2021-04-08] VITALS (92 sets, daily range): BP systolic 99–168; BP diastolic 59–104
[2021-04-08] MEDS: PROPOFOL 10MG/ML 100ML 100 ML IV PRN ×4 (00:19→09:18)
[2021-04-08] MEDS: ACETAMINOPHEN 650MG/20.3ML UDC PO PRN ×3 (00:35→20:23)
[2021-04-08] MEDS: MEROPENEM 1,000 MG in SODIUM CHLORIDE 0.9% 100 ML IV SCH ×2 (03:09→15:35)
[2021-04-08] MEDS: DEXT 5%/0.9% NACL 1,000 ML IV SCH ×2 (03:09→16:55)
[2021-04-08] MEDS: NICARDIPINE 100 MG in SODIUM CHLORIDE 0.9% 60 ML IV PRN ×3 (03:28→20:40)
[2021-04-08 05:37] LABS: HEMATOCRIT. 26.7 % (42.0-52.0); HEMOGLOBIN. 8.5 g/dL (14.0-18.0); MEAN CORPUSCULAR HEMOGLOBIN 30.1 pg (28.0-32.0); MEAN CORPUSCULAR VOLUME 94.4 fL (80.0-94.0); MEAN PLATELET VOLUME 8.6 fl (7.4-10.4); PLATELET 245 x1000/uL (130-400); RED BLOOD CELL COUNT 2.83 mill/uL (4.7-6.1); RED CELL DISTRIBUTION WIDTH 14.8 % (11.6-14.6)
[2021-04-08] MEDS: HYDRALAZINE HCL 25MG TABLET PO SCH ×3 (05:56→21:07)
[2021-04-08] MEDS: BLOOD SUGAR DIAGNOSTIC STRIP TEST SCH ×3 (05:56→18:00)
[2021-04-08] MEDS: INSULIN LISPRO 100 UNITS/ML SUBCUT SCH ×4 (06:00→18:00)
[2021-04-08 06:08] LABS: HEPATITIS B SURFACE ANTIGEN NEGATIVE
[2021-04-08 07:28] LABS: PLATELET ESTIMATE NORMAL
[2021-04-08] MEDS: CITRIC ACID/SODIUM CITRATE SOLN 30ML UDC PO SCH ×3 (08:35→16:55)
[2021-04-08] MEDS: LABETALOL HCL 100MG TABLET PO SCH (08:35)
[2021-04-08] MEDS: PANTOPRAZOLE SODIUM 40 MG/VIAL IV SCH (08:35)
[2021-04-08] MEDS: LEVETIRACETAM 500MG PREMIX 100 ML IV SCH ×2 (08:35→21:06)
[2021-04-08] MEDS: DOCUSATE SODIUM SUGAR FREE 100MG/10ML UDC NG SCH (08:36)
[2021-04-08] MEDS: POLYETHYLENE GLYCOL 3350 (17GM) 1 DOSE PACK NG SCH (08:36)
[2021-04-08] MEDS ORDERED: LIDOCAINE HCL/EPINEPHRINE 1%-EPI 1:100,000 20 ML VIAL ONE (08:57)
[2021-04-08] MEDS ORDERED: CLONIDINE 0.1MG TABLET PO PRN (10:00)
[2021-04-08] MEDS ORDERED: VECURONIUM BROMIDE 10 MG/VIAL IV ONE (10:21)
[2021-04-08] MEDS ORDERED: SODIUM CHLORIDE 0.9% 10ML VIAL ONE (10:21)
[2021-04-08] MEDS ORDERED: GLYCOPYRROLATE 0.2 MG/ML 2ML VIAL ONE (11:06)
[2021-04-08] MEDS ORDERED: NEOSTIGMINE METHYLSULFATE 1MG/ML 10 ML VIAL ONE (11:12)
[2021-04-08] MEDS: VANCOMYCIN 1250MG in DEXTROSE 5% WATER 250ML IV SCH (12:00)
[2021-04-08] MEDS: HYDRALAZINE 20MG/ML VIAL IV PRN ×2 (12:19→16:55)
[2021-04-08] MEDS: AMLODIPINE 10MG TABLET PO SCH (12:19)
[2021-04-08] MEDS ORDERED: CLONIDINE 0.1MG TABLET PO SCH (14:00)
[2021-04-08] MEDS: CLONIDINE 0.2MG TABLET PO PRN (20:23)
[2021-04-08] MEDS: SENNOSIDES/DOCUSATE SOD 8.6/50MG TABLET NG SCH (21:07)
[2021-04-09] VITALS (90 sets, daily range): BP systolic 107–155; BP diastolic 63–99
[2021-04-09] MEDS: BLOOD SUGAR DIAGNOSTIC STRIP TEST SCH ×4 (00:48→18:07)
[2021-04-09] MEDS: HYDRALAZINE 20MG/ML VIAL IV PRN (01:08)
[2021-04-09] MEDS: NICARDIPINE 100 MG in SODIUM CHLORIDE 0.9% 60 ML IV PRN ×3 (02:27→17:38)
[2021-04-09] MEDS: CLONIDINE 0.2MG TABLET PO PRN ×2 (03:19→21:04)
[2021-04-09] MEDS: ACETAMINOPHEN 650MG/20.3ML UDC PO PRN ×2 (03:19→12:46)
[2021-04-09] MEDS: MEROPENEM 1,000 MG in SODIUM CHLORIDE 0.9% 100 ML IV SCH ×2 (03:19→15:48)
[2021-04-09] MEDS: INSULIN LISPRO 100 UNITS/ML SUBCUT SCH ×4 (06:00→18:00)
[2021-04-09] MEDS: HYDRALAZINE HCL 25MG TABLET PO SCH (06:12)
[2021-04-09 06:13] LABS: PHOSPHORUS 1.8 mg/dL (2.5-4.9)
[2021-04-09] MEDS: DEXT 5%/0.9% NACL 1,000 ML IV SCH (06:13)
[2021-04-09 06:16] LABS: MEAN CORPUSCULAR HEMOGLOBIN 30.3 pg (28.0-32.0); MEAN PLATELET VOLUME 8.4 fl (7.4-10.4); PLATELET 274 x1000/uL (130-400); RED BLOOD CELL COUNT 2.63 mill/uL (4.7-6.1); RED CELL DISTRIBUTION WIDTH 14.7 % (11.6-14.6)
[2021-04-09] MEDS: DESMOPRESSIN ACETATE 4MCG/ML AMP IV SCH ×2 (08:48→21:03)
[2021-04-09] MEDS: MORPHINE SULFATE 2 MG/ML CPJ (NOT FOR IM USE) IV PRN ×4 (08:48→21:05)
[2021-04-09] MEDS: LEVETIRACETAM 500MG PREMIX 100 ML IV SCH ×2 (08:48→21:03)
[2021-04-09] MEDS: PANTOPRAZOLE SODIUM 40 MG/VIAL IV SCH (08:48)
[2021-04-09] MEDS: DEXT 5%/0.45% NACL 1000ML 1,000 ML IV SCH ×2 (08:49→17:37)
[2021-04-09] MEDS: DOCUSATE SODIUM SUGAR FREE 100MG/10ML UDC NG SCH (08:49)
[2021-04-09] MEDS: CITRIC ACID/SODIUM CITRATE SOLN 30ML UDC PO SCH ×3 (08:50→17:37)
[2021-04-09] MEDS: AMLODIPINE 10MG TABLET PO SCH (08:50)
[2021-04-09] MEDS: POLYETHYLENE GLYCOL 3350 (17GM) 1 DOSE PACK NG SCH (08:50)
[2021-04-09 09:01] LABS: NUCLEATED RED BLOOD CELLS 1 /100 WBC; PLATELET ESTIMATE NORMAL
[2021-04-09] MEDS: VANCOMYCIN 1 G PREMIX 200 ML IV SCH (12:12)
[2021-04-09] MEDS: HYDRALAZINE HCL 50MG TABLET PO SCH ×2 (15:02→21:04)
[2021-04-09] MEDS: SENNOSIDES/DOCUSATE SOD 8.6/50MG TABLET NG SCH (21:03)
[2021-04-10] VITALS (58 sets, daily range): BP systolic 98–170; BP diastolic 49–99
[2021-04-10] MEDS: BLOOD SUGAR DIAGNOSTIC STRIP TEST SCH ×4 (00:48→17:57)
[2021-04-10] MEDS: HYDRALAZINE 20MG/ML VIAL IV PRN ×4 (01:05→17:38)
[2021-04-10] MEDS: MORPHINE SULFATE 2 MG/ML CPJ (NOT FOR IM USE) IV PRN (01:06)
[2021-04-10] MEDS: DEXT 5%/0.45% NACL 1000ML 1,000 ML IV SCH ×3 (03:52→23:45)
[2021-04-10] MEDS: MEROPENEM 1,000 MG in SODIUM CHLORIDE 0.9% 100 ML IV SCH ×2 (03:52→14:24)
[2021-04-10] MEDS: HYDRALAZINE HCL 50MG TABLET PO SCH ×3 (05:09→20:47)
[2021-04-10 05:13] LABS: HEMATOCRIT. 23.7 % (42.0-52.0); HEMOGLOBIN. 7.6 g/dL (14.0-18.0); MEAN CORPUSCULAR HEMOGLOBIN 30.4 pg (28.0-32.0); MEAN CORPUSCULAR VOLUME 94.8 fL (80.0-94.0); MEAN PLATELET VOLUME 7.7 fl (7.4-10.4); PLATELET 331 x1000/uL (130-400); RED CELL DISTRIBUTION WIDTH 14.9 % (11.6-14.6)
[2021-04-10] MEDS: INSULIN LISPRO 100 UNITS/ML SUBCUT SCH ×4 (05:28→17:57)
[2021-04-10] MEDS: CLONIDINE 0.2MG TABLET PO PRN (06:26)
[2021-04-10] MEDS ORDERED: POTASSIUM CHLORIDE INJ 40 MEQ in DEXT 5% WATER 250 ML IV NR (08:00)
[2021-04-10] MEDS: LEVETIRACETAM 500MG PREMIX 100 ML IV SCH ×2 (08:10→20:47)
[2021-04-10] MEDS: DOCUSATE SODIUM SUGAR FREE 100MG/10ML UDC NG SCH (08:11)
[2021-04-10] MEDS: POLYETHYLENE GLYCOL 3350 (17GM) 1 DOSE PACK NG SCH (08:11)
[2021-04-10] MEDS: PANTOPRAZOLE SODIUM 40 MG/VIAL IV SCH (08:11)
[2021-04-10] MEDS: ACETAMINOPHEN 650MG/20.3ML UDC PO PRN (08:11)
[2021-04-10] MEDS: AMLODIPINE 10MG TABLET PO SCH (08:11)
[2021-04-10] MEDS: CITRIC ACID/SODIUM CITRATE SOLN 30ML UDC PO SCH ×3 (08:11→17:38)
[2021-04-10] MEDS: IPRATROPIUM/ALBUTEROL 0.5-3(2.5)MG/3ML NEB HHN PRN (08:51)
[2021-04-10] MEDS: DESMOPRESSIN ACETATE 0.1MG TABLET PO SCH ×2 (09:56→21:15)
[2021-04-10 11:23] LABS: PLATELET ESTIMATE NORMAL
[2021-04-10] MEDS: VANCOMYCIN 1 G PREMIX 200 ML IV SCH (12:33)
[2021-04-10] MEDS: ACETYLCYSTEINE 100MG/ML 10% VIAL 4ML INH SCH ×2 (12:37→17:39)
[2021-04-10] MEDS: IPRATROPIUM/ALBUTEROL 0.5-3(2.5)MG/3ML NEB HHN SCH ×3 (12:37→20:34)
[2021-04-10] MEDS: SENNOSIDES/DOCUSATE SOD 8.6/50MG TABLET NG SCH (20:47)
[2021-04-11] VITALS (12 sets, daily range): BP systolic 118–176; BP diastolic 78–101
[2021-04-11] MEDS: IPRATROPIUM/ALBUTEROL 0.5-3(2.5)MG/3ML NEB HHN SCH ×6 (00:21→21:01)
[2021-04-11] MEDS: ACETYLCYSTEINE 100MG/ML 10% VIAL 4ML INH SCH ×4 (00:22→21:00)
[2021-04-11] MEDS: MEROPENEM 1,000 MG in SODIUM CHLORIDE 0.9% 100 ML IV SCH ×2 (03:00→15:19)
[2021-04-11] MEDS: HYDRALAZINE 20MG/ML VIAL IV PRN ×3 (04:26→18:52)
[2021-04-11] MEDS: INSULIN LISPRO 100 UNITS/ML SUBCUT SCH ×4 (05:32→18:00)
[2021-04-11] MEDS: BLOOD SUGAR DIAGNOSTIC STRIP TEST SCH ×4 (05:32→18:25)
[2021-04-11] MEDS: HYDRALAZINE HCL 50MG TABLET PO SCH ×3 (05:32→21:52)
[2021-04-11 07:14] LABS: INR 1.2; PROTHROMBIN TIME 12.4 sec (9.6-11.0)
[2021-04-11 07:19] LABS: BASOPHILS % 0.2 % (0.0-2.0); EOSINOPHILS % 1.3 % (0.0-5.0); HEMATOCRIT. 25.3 % (42.0-52.0); HEMOGLOBIN. 8.2 g/dL (14.0-18.0); LYMPHOCYTES % 7.3 % (20.0-50.0); MEAN CORPUSCULAR HEMOGLOBIN 30.5 pg (28.0-32.0); MEAN CORPUSCULAR VOLUME 93.8 fL (80.0-94.0); MEAN PLATELET VOLUME 8.2 fl (7.4-10.4); NEUTROPHILS % 83.2 % (40.0-76.0); PLATELET 333 x1000/uL (130-400); RED CELL DISTRIBUTION WIDTH 14.9 % (11.6-14.6)
[2021-04-11 07:24] LABS: PHOSPHORUS 2.1 mg/dL (2.5-4.9)
[2021-04-11] MEDS: DOCUSATE SODIUM SUGAR FREE 100MG/10ML UDC NG SCH ×2 (08:07→11:08)
[2021-04-11] MEDS: PANTOPRAZOLE SODIUM 40 MG/VIAL IV SCH (08:15)
[2021-04-11] MEDS: LEVETIRACETAM 500MG PREMIX 100 ML IV SCH ×2 (08:16→21:52)
[2021-04-11] MEDS: POLYETHYLENE GLYCOL 3350 (17GM) 1 DOSE PACK NG SCH ×2 (08:16→11:08)
[2021-04-11] MEDS: DESMOPRESSIN ACETATE 0.1MG TABLET PO SCH ×3 (08:16→21:51)
[2021-04-11] MEDS: CITRIC ACID/SODIUM CITRATE SOLN 30ML UDC PO SCH ×3 (08:16→16:52)
[2021-04-11] MEDS: AMLODIPINE 10MG TABLET PO SCH ×2 (08:17→11:09)
[2021-04-11] MEDS ORDERED: PROPOFOL 200MG/20ML VIAL IV ONE (09:45)
[2021-04-11] MEDS ORDERED: FENTANYL CITRATE/PF 50MCG/ML 2ML VIAL ONE (09:51)
[2021-04-11] MEDS ORDERED: ONDANSETRON HCL 4MG/2ML INJ ONE (09:56)
[2021-04-11] MEDS: DEXT 5%/0.45% NACL 1000ML 1,000 ML IV SCH (10:17)
[2021-04-11] MEDS: ACETAMINOPHEN 650MG/20.3ML UDC PO PRN (10:17)
[2021-04-11] MEDS: DEXTROSE 5% WATER 1,000 ML IV SCH (11:09)
[2021-04-11] MEDS: GUAIFENESIN 200MG/10ML SUGAR FREE UDC PO SCH (16:52)
[2021-04-11] MEDS: CLONIDINE 0.2MG TABLET PO PRN (19:27)
[2021-04-11] MEDS: SENNOSIDES/DOCUSATE SOD 8.6/50MG TABLET NG SCH (21:51)
[2021-04-12] VITALS (12 sets, daily range): BP systolic 122–161; BP diastolic 67–113
[2021-04-12] MEDS: IPRATROPIUM/ALBUTEROL 0.5-3(2.5)MG/3ML NEB HHN SCH ×6 (00:22→20:44)
[2021-04-12] MEDS: BLOOD SUGAR DIAGNOSTIC STRIP TEST SCH ×4 (00:31→17:46)
[2021-04-12] MEDS: GUAIFENESIN 200MG/10ML SUGAR FREE UDC PO SCH ×4 (00:32→17:46)
[2021-04-12] MEDS: DEXTROSE 5% WATER 1,000 ML IV SCH ×2 (00:32→12:48)
[2021-04-12] MEDS: MEROPENEM 1,000 MG in SODIUM CHLORIDE 0.9% 100 ML IV SCH ×2 (03:02→15:42)
[2021-04-12] MEDS: INSULIN LISPRO 100 UNITS/ML SUBCUT SCH ×4 (06:00→17:46)
[2021-04-12] MEDS: METOCLOPRAMIDE HCL 10MG/2ML VIAL IV SCH ×3 (06:21→17:45)
[2021-04-12] MEDS: HYDRALAZINE HCL 50MG TABLET PO SCH ×3 (06:21→21:39)
[2021-04-12 07:14] LABS: BASOPHILS % 0.3 % (0.0-2.0); EOSINOPHILS % 1.6 % (0.0-5.0); HEMATOCRIT. 24.6 % (42.0-52.0); HEMOGLOBIN. 8.1 g/dL (14.0-18.0); LYMPHOCYTES % 7.3 % (20.0-50.0); MEAN CORPUSCULAR HEMOGLOBIN 30.7 pg (28.0-32.0); MEAN CORPUSCULAR VOLUME 93.5 fL (80.0-94.0); MEAN PLATELET VOLUME 7.7 fl (7.4-10.4); MONOCYTES % 7.2 % (2.0-8.0); NEUTROPHILS % 83.6 % (40.0-76.0); PLATELET 316 x1000/uL (130-400); RED BLOOD CELL COUNT 2.63 mill/uL (4.7-6.1); RED CELL DISTRIBUTION WIDTH 14.8 % (11.6-14.6)
[2021-04-12] MEDS: ACETYLCYSTEINE 100MG/ML 10% VIAL 4ML INH SCH ×2 (08:25→16:19)
[2021-04-12] MEDS: DOCUSATE SODIUM SUGAR FREE 100MG/10ML UDC NG SCH (08:40)
[2021-04-12] MEDS: AMLODIPINE 10MG TABLET PO SCH (08:40)
[2021-04-12] MEDS: CLONIDINE 0.2MG TABLET PO SCH ×3 (08:41→21:39)
[2021-04-12] MEDS: LEVETIRACETAM 500MG PREMIX 100 ML IV SCH ×2 (08:41→21:40)
[2021-04-12] MEDS: POLYETHYLENE GLYCOL 3350 (17GM) 1 DOSE PACK NG SCH (08:42)
[2021-04-12] MEDS: PANTOPRAZOLE SODIUM 40 MG/VIAL IV SCH (08:42)
[2021-04-12] MEDS: CITRIC ACID/SODIUM CITRATE SOLN 30ML UDC PO SCH ×3 (08:42→17:45)
[2021-04-12] MEDS: DESMOPRESSIN ACETATE 0.1MG TABLET PO SCH ×2 (08:48→21:39)
[2021-04-12] MEDS: SENNOSIDES/DOCUSATE SOD 8.6/50MG TABLET NG SCH (21:38)
[2021-04-13] VITALS (12 sets, daily range): BP systolic 130–151; BP diastolic 77–104
[2021-04-13] MEDS: ACETAMINOPHEN 650MG/20.3ML UDC PO PRN ×2 (00:08→09:50)
[2021-04-13] MEDS: BLOOD SUGAR DIAGNOSTIC STRIP TEST SCH ×4 (00:08→17:23)
[2021-04-13] MEDS: IPRATROPIUM/ALBUTEROL 0.5-3(2.5)MG/3ML NEB HHN SCH ×6 (00:34→21:22)
[2021-04-13] MEDS: ACETYLCYSTEINE 100MG/ML 10% VIAL 4ML INH SCH ×3 (00:35→15:28)
[2021-04-13] MEDS: DEXTROSE 5% WATER 1,000 ML IV SCH ×2 (03:56→14:54)
[2021-04-13] MEDS: HYDRALAZINE HCL 50MG TABLET PO SCH ×3 (05:53→21:37)
[2021-04-13] MEDS: CLONIDINE 0.2MG TABLET PO SCH ×3 (05:54→21:37)
[2021-04-13] MEDS: METOCLOPRAMIDE HCL 10MG/2ML VIAL IV SCH ×3 (06:00→12:00)
[2021-04-13] MEDS: GUAIFENESIN 200MG/10ML SUGAR FREE UDC PO SCH ×4 (06:00→18:05)
[2021-04-13] MEDS: INSULIN LISPRO 100 UNITS/ML SUBCUT SCH ×4 (06:00→17:23)
[2021-04-13] MEDS: POLYETHYLENE GLYCOL 3350 (17GM) 1 DOSE PACK NG SCH (09:00)
[2021-04-13] MEDS: DOCUSATE SODIUM SUGAR FREE 100MG/10ML UDC NG SCH (09:00)
[2021-04-13 09:03] LABS: BASOPHILS % 0.3 % (0.0-2.0); EOSINOPHILS % 2.3 % (0.0-5.0); HEMATOCRIT. 23.9 % (42.0-52.0); HEMOGLOBIN. 7.7 g/dL (14.0-18.0); MEAN CORPUSCULAR HEMOGLOBIN 30.8 pg (28.0-32.0); MEAN CORPUSCULAR VOLUME 95.4 fL (80.0-94.0); MONOCYTES % 6.5 % (2.0-8.0); NEUTROPHILS % 80.9 % (40.0-76.0); PLATELET 272 x1000/uL (130-400); RED BLOOD CELL COUNT 2.51 mill/uL (4.7-6.1); RED CELL DISTRIBUTION WIDTH 14.6 % (11.6-14.6)
[2021-04-13] MEDS: PANTOPRAZOLE SODIUM 40 MG/VIAL IV SCH (09:49)
[2021-04-13] MEDS: LEVETIRACETAM 500MG PREMIX 100 ML IV SCH ×2 (09:49→21:36)
[2021-04-13] MEDS: AMLODIPINE 10MG TABLET PO SCH (09:49)
[2021-04-13] MEDS: DESMOPRESSIN ACETATE 0.1MG TABLET PO SCH ×2 (09:50→21:37)
[2021-04-13] MEDS: SENNOSIDES/DOCUSATE SOD 8.6/50MG TABLET NG SCH (21:38)
[2021-04-14] VITALS (12 sets, daily range): BP systolic 127–149; BP diastolic 77–102
[2021-04-14] MEDS: ACETYLCYSTEINE 100MG/ML 10% VIAL 4ML INH SCH ×3 (00:56→15:57)
[2021-04-14] MEDS: IPRATROPIUM/ALBUTEROL 0.5-3(2.5)MG/3ML NEB HHN SCH ×6 (00:56→20:12)
[2021-04-14] MEDS: GUAIFENESIN 200MG/10ML SUGAR FREE UDC PO SCH ×5 (01:44→23:15)
[2021-04-14] MEDS ORDERED: NOREPINEPHRINE 8 MG in DEXT 5% WATER 242 ML IV PRN (03:15)
[2021-04-14 05:34] LABS: BASOPHILS % 0.5 % (0.0-2.0); EOSINOPHILS % 2.7 % (0.0-5.0); HEMATOCRIT. 23.5 % (42.0-52.0); HEMOGLOBIN. 7.7 g/dL (14.0-18.0); MEAN CORPUSCULAR VOLUME 93.8 fL (80.0-94.0); MEAN PLATELET VOLUME 7.8 fl (7.4-10.4); MONOCYTES % 5.8 % (2.0-8.0); PLATELET 284 x1000/uL (130-400); RED CELL DISTRIBUTION WIDTH 14.6 % (11.6-14.6)
[2021-04-14] MEDS: BLOOD SUGAR DIAGNOSTIC STRIP TEST SCH ×5 (05:38→23:14)
[2021-04-14] MEDS: INSULIN LISPRO 100 UNITS/ML SUBCUT SCH ×5 (05:38→23:14)
[2021-04-14] MEDS: DEXTROSE 5% WATER 1,000 ML IV SCH (06:11)
[2021-04-14] MEDS: CLONIDINE 0.2MG TABLET PO SCH ×3 (06:11→23:09)
[2021-04-14] MEDS: HYDRALAZINE HCL 50MG TABLET PO SCH ×3 (06:11→23:10)
[2021-04-14 06:23] LABS: CHLORIDE 114 mEq/L (98-107)
[2021-04-14] MEDS: LEVETIRACETAM 500MG PREMIX 100 ML IV SCH ×2 (08:28→20:25)
[2021-04-14] MEDS: DOCUSATE SODIUM SUGAR FREE 100MG/10ML UDC NG SCH (08:28)
[2021-04-14] MEDS: DESMOPRESSIN ACETATE 0.1MG TABLET PO SCH ×2 (08:29→20:25)
[2021-04-14] MEDS: AMLODIPINE 10MG TABLET PO SCH (08:29)
[2021-04-14] MEDS: PANTOPRAZOLE SODIUM 40 MG/VIAL IV SCH (08:29)
[2021-04-14] MEDS: POLYETHYLENE GLYCOL 3350 (17GM) 1 DOSE PACK NG SCH (08:29)
[2021-04-14] MEDS: SENNOSIDES/DOCUSATE SOD 8.6/50MG TABLET NG SCH (20:26)
[2021-04-15] VITALS (19 sets, daily range): BP systolic 99–140; BP diastolic 63–94
[2021-04-15] MEDS: ACETYLCYSTEINE 100MG/ML 10% VIAL 4ML INH SCH ×3 (00:07→12:03)
[2021-04-15] MEDS: IPRATROPIUM/ALBUTEROL 0.5-3(2.5)MG/3ML NEB HHN SCH ×7 (00:07→23:54)
[2021-04-15] MEDS: GUAIFENESIN 200MG/10ML SUGAR FREE UDC PO SCH ×4 (05:23→23:19)
[2021-04-15] MEDS: BLOOD SUGAR DIAGNOSTIC STRIP TEST SCH ×4 (05:24→23:19)
[2021-04-15] MEDS: HYDRALAZINE HCL 50MG TABLET PO SCH ×3 (05:24→21:53)
[2021-04-15] MEDS: CLONIDINE 0.2MG TABLET PO SCH ×3 (05:24→21:53)
[2021-04-15] MEDS: INSULIN LISPRO 100 UNITS/ML SUBCUT SCH ×4 (05:28→23:19)
[2021-04-15 06:28] LABS: BASOPHILS % 0.6 % (0.0-2.0); EOSINOPHILS % 3.1 % (0.0-5.0); HEMATOCRIT. 22.7 % (42.0-52.0); HEMOGLOBIN. 7.3 g/dL (14.0-18.0); LYMPHOCYTES % 11.7 % (20.0-50.0); MEAN CORPUSCULAR HEMOGLOBIN 30.5 pg (28.0-32.0); MEAN CORPUSCULAR VOLUME 94.6 fL (80.0-94.0); MEAN PLATELET VOLUME 8.5 fl (7.4-10.4); MONOCYTES % 5.9 % (2.0-8.0); NEUTROPHILS % 78.7 % (40.0-76.0); PLATELET 279 x1000/uL (130-400); RED CELL DISTRIBUTION WIDTH 14.5 % (11.6-14.6)
[2021-04-15 07:05] LABS: CHLORIDE 111 mEq/L (98-107)
[2021-04-15] MEDS: AMLODIPINE 10MG TABLET PO SCH (09:00)
[2021-04-15] MEDS: PANTOPRAZOLE SODIUM 40 MG/VIAL IV SCH (09:58)
[2021-04-15] MEDS: DOCUSATE SODIUM SUGAR FREE 100MG/10ML UDC NG SCH (09:58)
[2021-04-15] MEDS: DESMOPRESSIN ACETATE 0.1MG TABLET PO SCH ×2 (09:58→21:53)
[2021-04-15] MEDS: POLYETHYLENE GLYCOL 3350 (17GM) 1 DOSE PACK NG SCH (09:58)
[2021-04-15] MEDS: LEVETIRACETAM 500MG PREMIX 100 ML IV SCH ×2 (13:10→21:51)
[2021-04-15] MEDS: SENNOSIDES/DOCUSATE SOD 8.6/50MG TABLET NG SCH (21:51)
[2021-04-16] VITALS (15 sets, daily range): BP systolic 104–142; BP diastolic 68–92
[2021-04-16 00:02] LABS: HEMATOCRIT 28.6 % (42.0-52.0); HEMOGLOBIN 9.4 g/dL (14.0-18.0)
[2021-04-16] MEDS: IPRATROPIUM/ALBUTEROL 0.5-3(2.5)MG/3ML NEB HHN SCH ×5 (04:30→20:08)
[2021-04-16] MEDS: GUAIFENESIN 200MG/10ML SUGAR FREE UDC PO SCH ×3 (05:00→19:49)
[2021-04-16] MEDS: BLOOD SUGAR DIAGNOSTIC STRIP TEST SCH ×3 (05:01→17:39)
[2021-04-16] MEDS: CLONIDINE 0.2MG TABLET PO SCH ×3 (05:01→21:08)
[2021-04-16] MEDS: HYDRALAZINE HCL 50MG TABLET PO SCH ×3 (05:01→21:08)
[2021-04-16] MEDS: INSULIN LISPRO 100 UNITS/ML SUBCUT SCH ×3 (05:05→17:39)
[2021-04-16 06:04] LABS: BASOPHILS % 0.5 % (0.0-2.0); HEMATOCRIT. 27.3 % (42.0-52.0); HEMOGLOBIN. 8.9 g/dL (14.0-18.0); LYMPHOCYTES % 9.9 % (20.0-50.0); MEAN CORPUSCULAR HEMOGLOBIN 30.2 pg (28.0-32.0); MEAN CORPUSCULAR VOLUME 93.3 fL (80.0-94.0); MEAN PLATELET VOLUME 8.5 fl (7.4-10.4); MONOCYTES % 7.1 % (2.0-8.0); NEUTROPHILS % 79.5 % (40.0-76.0); PLATELET 281 x1000/uL (130-400); RED BLOOD CELL COUNT 2.93 mill/uL (4.7-6.1); RED CELL DISTRIBUTION WIDTH 15.4 % (11.6-14.6)
[2021-04-16 06:20] LABS: CHLORIDE 112 mEq/L (98-107)
[2021-04-16 06:25] LABS: TOTAL IRON BINDING CAPACITY 149 ug/dL (250-450)
[2021-04-16] MEDS: AMLODIPINE 10MG TABLET PO SCH (09:00)
[2021-04-16] MEDS: DOCUSATE SODIUM SUGAR FREE 100MG/10ML UDC NG SCH (09:00)
[2021-04-16] MEDS: DESMOPRESSIN ACETATE 0.1MG TABLET PO SCH ×2 (09:00→21:10)
[2021-04-16] MEDS: PANTOPRAZOLE SODIUM 40 MG/VIAL IV SCH (09:00)
[2021-04-16] MEDS: LEVETIRACETAM 500MG PREMIX 100 ML IV SCH ×2 (09:01→21:08)
[2021-04-16] MEDS: POLYETHYLENE GLYCOL 3350 (17GM) 1 DOSE PACK NG SCH (09:01)
[2021-04-16] MEDS: SENNOSIDES/DOCUSATE SOD 8.6/50MG TABLET NG SCH (21:08)
[2021-04-17] VITALS (12 sets, daily range): BP systolic 98–148; BP diastolic 68–93
[2021-04-17] MEDS: IPRATROPIUM/ALBUTEROL 0.5-3(2.5)MG/3ML NEB HHN SCH ×6 (00:32→20:39)
[2021-04-17] MEDS: GUAIFENESIN 200MG/10ML SUGAR FREE UDC PO SCH ×4 (00:58→18:15)
[2021-04-17] MEDS: BLOOD SUGAR DIAGNOSTIC STRIP TEST SCH ×4 (00:58→18:15)
[2021-04-17] MEDS: CLONIDINE 0.2MG TABLET PO SCH ×3 (05:40→20:52)
[2021-04-17] MEDS: HYDRALAZINE HCL 50MG TABLET PO SCH ×3 (05:40→20:52)
[2021-04-17] MEDS: ACETAMINOPHEN 650MG/20.3ML UDC PO PRN (05:49)
[2021-04-17] MEDS: INSULIN LISPRO 100 UNITS/ML SUBCUT SCH ×4 (05:49→18:00)
[2021-04-17 06:24] LABS: BASOPHILS % 0.4 % (0.0-2.0); EOSINOPHILS % 2.5 % (0.0-5.0); HEMATOCRIT. 27.7 % (42.0-52.0); HEMOGLOBIN. 8.9 g/dL (14.0-18.0); LYMPHOCYTES % 11.9 % (20.0-50.0); MEAN CORPUSCULAR HEMOGLOBIN 30.5 pg (28.0-32.0); MEAN CORPUSCULAR VOLUME 94.5 fL (80.0-94.0); MEAN PLATELET VOLUME 8.1 fl (7.4-10.4); MONOCYTES % 8.4 % (2.0-8.0); NEUTROPHILS % 76.8 % (40.0-76.0); PLATELET 286 x1000/uL (130-400); RED BLOOD CELL COUNT 2.93 mill/uL (4.7-6.1); RED CELL DISTRIBUTION WIDTH 15.5 % (11.6-14.6)
[2021-04-17 06:26] LABS: CHLORIDE 109 mEq/L (98-107)
[2021-04-17] MEDS: DOCUSATE SODIUM SUGAR FREE 100MG/10ML UDC NG SCH (08:59)
[2021-04-17] MEDS: DESMOPRESSIN ACETATE 0.1MG TABLET PO SCH ×2 (08:59→20:55)
[2021-04-17] MEDS: LEVETIRACETAM 500MG PREMIX 100 ML IV SCH ×2 (08:59→20:51)
[2021-04-17] MEDS: PANTOPRAZOLE SODIUM 40 MG/VIAL IV SCH (08:59)
[2021-04-17] MEDS: POLYETHYLENE GLYCOL 3350 (17GM) 1 DOSE PACK NG SCH (08:59)
[2021-04-17] MEDS: AMLODIPINE 10MG TABLET PO SCH (11:12)
[2021-04-17] MEDS: SENNOSIDES/DOCUSATE SOD 8.6/50MG TABLET NG SCH (20:52)
[2021-04-18] VITALS (12 sets, daily range): BP systolic 102–155; BP diastolic 62–110
[2021-04-18] MEDS: IPRATROPIUM/ALBUTEROL 0.5-3(2.5)MG/3ML NEB HHN SCH ×6 (00:54→21:05)
[2021-04-18] MEDS: INSULIN LISPRO 100 UNITS/ML SUBCUT SCH ×4 (05:42→18:00)
[2021-04-18] MEDS: GUAIFENESIN 200MG/10ML SUGAR FREE UDC PO SCH ×4 (05:42→18:17)
[2021-04-18] MEDS: BLOOD SUGAR DIAGNOSTIC STRIP TEST SCH ×4 (05:42→18:17)
[2021-04-18] MEDS: CLONIDINE 0.2MG TABLET PO SCH ×3 (05:42→21:11)
[2021-04-18] MEDS: HYDRALAZINE HCL 50MG TABLET PO SCH ×3 (05:42→21:11)
[2021-04-18 06:47] LABS: BASOPHILS % 0.3 % (0.0-2.0); EOSINOPHILS % 2.4 % (0.0-5.0); HEMATOCRIT. 27.1 % (42.0-52.0); HEMOGLOBIN. 8.9 g/dL (14.0-18.0); MEAN CORPUSCULAR HEMOGLOBIN 30.2 pg (28.0-32.0); MEAN CORPUSCULAR VOLUME 92.3 fL (80.0-94.0); MEAN PLATELET VOLUME 7.8 fl (7.4-10.4); NEUTROPHILS % 78.3 % (40.0-76.0); PLATELET 310 x1000/uL (130-400); RED BLOOD CELL COUNT 2.94 mill/uL (4.7-6.1); RED CELL DISTRIBUTION WIDTH 15.3 % (11.6-14.6)
[2021-04-18 06:56] LABS: CHLORIDE 109 mEq/L (98-107)
[2021-04-18] MEDS: POLYETHYLENE GLYCOL 3350 (17GM) 1 DOSE PACK NG SCH (08:38)
[2021-04-18] MEDS: DOCUSATE SODIUM SUGAR FREE 100MG/10ML UDC NG SCH (08:38)
[2021-04-18] MEDS: PANTOPRAZOLE SODIUM 40 MG/VIAL IV SCH (09:02)
[2021-04-18] MEDS: DESMOPRESSIN ACETATE 0.1MG TABLET PO SCH ×2 (09:02→21:37)
[2021-04-18] MEDS: LEVETIRACETAM 500MG PREMIX 100 ML IV SCH ×2 (09:02→21:10)
[2021-04-18] MEDS: AMLODIPINE 10MG TABLET PO SCH (09:02)
[2021-04-18] MEDS: ACETAMINOPHEN 650MG/20.3ML UDC PO PRN (09:24)
[2021-04-18] MEDS: SENNOSIDES/DOCUSATE SOD 8.6/50MG TABLET NG SCH (21:10)
[2021-04-19] VITALS (8 sets, daily range): BP systolic 93–130; BP diastolic 55–79
[2021-04-19] MEDS: IPRATROPIUM/ALBUTEROL 0.5-3(2.5)MG/3ML NEB HHN SCH ×3 (00:19→08:38)
[2021-04-19] MEDS: GUAIFENESIN 200MG/10ML SUGAR FREE UDC PO SCH ×2 (00:48→06:01)
[2021-04-19] MEDS: BLOOD SUGAR DIAGNOSTIC STRIP TEST SCH ×3 (00:48→12:00)
[2021-04-19] MEDS: INSULIN LISPRO 100 UNITS/ML SUBCUT SCH ×3 (06:00→12:00)
[2021-04-19] MEDS: HYDRALAZINE HCL 50MG TABLET PO SCH (06:02)
[2021-04-19] MEDS: CLONIDINE 0.2MG TABLET PO SCH (06:02)
[2021-04-19 06:39] LABS: CHLORIDE 109 mEq/L (98-107)
[2021-04-19 06:50] LABS: BASOPHILS % 0.4 % (0.0-2.0); EOSINOPHILS % 4.2 % (0.0-5.0); HEMATOCRIT. 25.8 % (42.0-52.0); HEMOGLOBIN. 8.5 g/dL (14.0-18.0); LYMPHOCYTES % 15.3 % (20.0-50.0); MEAN CORPUSCULAR HEMOGLOBIN 30.8 pg (28.0-32.0); MEAN CORPUSCULAR VOLUME 93.3 fL (80.0-94.0); MONOCYTES % 10.3 % (2.0-8.0); NEUTROPHILS % 69.8 % (40.0-76.0); PLATELET 290 x1000/uL (130-400); RED BLOOD CELL COUNT 2.77 mill/uL (4.7-6.1); RED CELL DISTRIBUTION WIDTH 15.2 % (11.6-14.6)
[2021-04-19] MEDS: ACETAMINOPHEN 650MG/20.3ML UDC PO PRN (06:56)
[2021-04-19] MEDS ORDERED: POLYETHYLENE GLYCOL 3350 (17GM) 1 DOSE PACK NG PRN (08:00)
[2021-04-19] MEDS: DESMOPRESSIN ACETATE 0.1MG TABLET PO SCH (08:37)
[2021-04-19] MEDS: PANTOPRAZOLE SODIUM 40 MG/VIAL IV SCH (08:37)
[2021-04-19] MEDS: DOCUSATE SODIUM SUGAR FREE 100MG/10ML UDC NG SCH (08:38)
[2021-04-19] MEDS: AMLODIPINE 10MG TABLET PO SCH (08:40)
[2021-04-19] MEDS ORDERED: LEVETIRACETAM 500MG/5ML CUP GT SCH (09:00)
== END 2021-04-19 17:21 | DRG 4 ==
LOC: ER 01:40 → MICUSO 03:15 → MICUNO 04:42 → 5EST 04-10 16:19
PROVIDERS: ADMIT Internal Medicine; ATTEND Internal Medicine
PROC: 5A1955Z Respiratory Ventilation, Greater than 96 Consecutive Hours (ICD-10-PCS; principal; 2021-03-29)
PROC: 00C60ZZ Extirpation of Matter from Cerebral Ventricle, Open Approach (ICD-10-PCS; 2021-03-29)
PROC: 009600Z Drainage of Cerebral Ventricle with Drainage Device, Open Approach (ICD-10-PCS; 2021-03-29)
PROC: 4A103BD Monitoring of Intracranial Pressure, Percutaneous Approach (ICD-10-PCS; 2021-03-29)
PROC: 00H632Z Insertion of Monitoring Device into Cerebral Ventricle, Percutaneous Approach (ICD-10-PCS; 2021-03-29)
PROC: 0NR00JZ Replacement of Skull with Synthetic Substitute, Open Approach (ICD-10-PCS; 2021-03-29)
PROC: 0BH17EZ Insertion of Endotracheal Airway into Trachea, Via Natural or Artificial Opening (ICD-10-PCS; 2021-03-29)
PROC: 02HV33Z Insertion of Infusion Device into Superior Vena Cava, Percutaneous Approach (ICD-10-PCS; 2021-03-31)
PROC: B548ZZA Ultrasonography of Superior Vena Cava, Guidance (ICD-10-PCS; 2021-03-31)
PROC: 0B110F4 Bypass Trachea to Cutaneous with Tracheostomy Device, Open Approach (ICD-10-PCS; 2021-04-08)
PROC: 30233N1 Transfusion of Nonautologous Red Blood Cells into Peripheral Vein, Percutaneous Approach (ICD-10-PCS; 2021-04-10)
PROC: 0DH63UZ Insertion of Feeding Device into Stomach, Percutaneous Approach (ICD-10-PCS; 2021-04-11)
PROC: 0DB78ZX Excision of Stomach, Pylorus, Via Natural or Artificial Opening Endoscopic, Diagnostic (ICD-10-PCS; 2021-04-11)
PROC: 4A10X4Z Monitoring of Central Nervous Electrical Activity, External Approach (ICD-10-PCS; 2021-04-12)
DX: A41.9 Sepsis, unspecified organism (principal); I61.5 Nontraumatic intracerebral hemorrhage, intraventricular; N17.0 Acute kidney failure with tubular necrosis; G81.91 Hemiplegia, unspecified affecting right dominant side; E44.0 Moderate protein-calorie malnutrition; G93.49 Other encephalopathy; K56.7 Ileus, unspecified; I42.9 Cardiomyopathy, unspecified; E83.39 Other disorders of phosphorus metabolism; J96.00 Acute respiratory failure, unspecified whether with hypoxia or hypercapnia; D64.9 Anemia, unspecified; E87.0 Hyperosmolality and hypernatremia; E87.2 Acidosis; I71.9 Aortic aneurysm of unspecified site, without rupture; R13.12 Dysphagia, oropharyngeal phase; G91.9 Hydrocephalus, unspecified; Z20.822 Contact with and (suspected) exposure to COVID-19; I10 Essential (primary) hypertension; T38.0X5A Adverse effect of glucocorticoids and synthetic analogues, initial encounter; R73.9 Hyperglycemia, unspecified; J98.11 Atelectasis; F14.10 Cocaine abuse, uncomplicated; R56.9 Unspecified convulsions; E80.6 Other disorders of bilirubin metabolism; R35.89 Other polyuria; R74.01 Elevation of levels of liver transaminase levels; K29.50 Unspecified chronic gastritis without bleeding; Y92.89 Other specified places as the place of occurrence of the external cause; Z99.11 Dependence on respirator [ventilator] status; Z68.39 Body mass index [BMI] 39.0-39.9, adult
CPT/HCPCS: 36415; 36600; 71045; 74018; 76700; 76770; 76937; 80048; 80053; 80076; 80202; 80305; 80307; 80320; 80329; 81003; 82140; 82247; 82248; 82270; 82375; 82728; 82805; 82962; 83036; 83540; 83550; 83605; 83735; 83930; 84100; 84145; 84295; 84450; 84478; 84484; 85014; 85018; 85025; 86705; 86709; 86803; 86850; 86900; 86920; 87070; 87340; 87426; 88305; 88312; 88313; 93005; 93970; 94002; 94003; 94640; 99291; A6261; C1713; C1725; C1769; C9113; J0330; J0360; J0690; J0692; J1100; J1580; J1815; J1953; J2150; J2185; J2270; J2310; J2405; J2597; J2704; J2710; J2765; J3010; J3370; J3480; J3490; J7030; J7040; J7042; J7050; J7060; J7070; J7120; J7608; P9016; G0480

== ENCOUNTER 2022-08-25 08:11 | Inpatient (IN) | payer MEDICAID ==
[~2022-08-25] VITALS: Ht 182.9 cm; Wt 79.5 kg
[2022-08-25] MEDS ORDERED: AZITHROMYCIN 500MG/250ML 250 ML IV ONE (09:15)
[2022-08-25] MEDS ORDERED: CEFTRIAXONE 1 G PREMIX 50 ML IV ONE (09:15)
[2022-08-25 09:29] LABS: HEMATOCRIT. 33.8 % (42.0-52.0); HEMOGLOBIN. 10.8 g/dL (14.0-18.0); MEAN CORPUSCULAR HEMOGLOBIN 29.4 pg (28.0-32.0); MEAN CORPUSCULAR VOLUME 92.1 fL (80.0-94.0); MEAN PLATELET VOLUME 8.5 fl (7.4-10.4); PLATELET 192 x1000/uL (130-400); RED BLOOD CELL COUNT 3.67 mill/uL (4.7-6.1); RED CELL DISTRIBUTION WIDTH 15.2 % (11.6-14.6)
[2022-08-25 09:34] LABS: PROTHROMBIN TIME 11.1 sec (9.6-11.0)
[2022-08-25 10:07] LABS: CHLORIDE 105 mEq/L (98-107)
[2022-08-25 10:35] LABS: CLARITY URINE CLOUDY (CLEAR); COLOR URINE YELLOW (YELLOW); KETONES URINE NEGATIVE (NEGATIVE); LEUKOCYTE ESTERASE URINE 3+ (NEGATIVE); NITRITE URINE NEGATIVE (NEGATIVE); OCCULT BLOOD URINE 2+ (NEGATIVE); PROTEIN URINE 1+ (NEGATIVE); SPECIFIC GRAVITY URINE 1.013 (1.005-1.030)
[2022-08-25 11:33] LABS: PLATELET ESTIMATE NORMAL
[2022-08-25] MEDS ORDERED: DOCUSATE SODIUM 100MG CAPSULE PO PRN (12:30)
[2022-08-25] MEDS ORDERED: NALOXONE HCL 0.4MG/ML VIAL IV PRN (12:30)
[2022-08-25] MEDS ORDERED: GUAIFENESIN 200MG/10ML SUGAR FREE UDC PO PRN (12:30)
[2022-08-25] MEDS: PANTOPRAZOLE SODIUM 40 MG/VIAL IV SCH (12:30)
[2022-08-25] MEDS ORDERED: ONDANSETRON HCL 4MG/2ML INJ IV PRN (12:30)
[2022-08-25] MEDS ORDERED: TRAMADOL 50MG TABLET PO PRN (12:30)
[2022-08-25] MEDS ORDERED: MAGNESIUM/ALUMINUM HYDROXIDE/SIMETHICONE 30ML UDC PO PRN (12:30)
[2022-08-25] MEDS: SODIUM CHLORIDE 0.45% 1,000 ML IV SCH (12:30)
[2022-08-25] MEDS: ENOXAPARIN 40MG/0.4ML SYR SUBCUT SCH (13:00)
[2022-08-25] MEDS ORDERED: DEXTROSE 50% WATER 50ML SYRINGE IV PRN (17:45)
[2022-08-25] MEDS: BLOOD SUGAR DIAGNOSTIC STRIP TEST SCH (21:00)
[2022-08-25] MEDS: INSULIN LISPRO 100 UNITS/ML SUBCUT SCH (21:00)
[2022-08-25] MEDS ORDERED: LEVETIRACETAM 500MG PREMIX 100 ML IV NR (21:15)
[2022-08-26] MEDS: SODIUM CHLORIDE 0.45% 1,000 ML IV SCH ×2 (05:13→22:10)
[2022-08-26 05:26] LABS: BASOPHILS % 0.2 % (0.0-2.0); EOSINOPHILS % 1.7 % (0.0-5.0); HEMATOCRIT. 35.1 % (42.0-52.0); HEMOGLOBIN. 11.4 g/dL (14.0-18.0); LYMPHOCYTES % 11.4 % (20.0-50.0); MEAN CORPUSCULAR HEMOGLOBIN 30.4 pg (28.0-32.0); MEAN CORPUSCULAR VOLUME 93.9 fL (80.0-94.0); MEAN PLATELET VOLUME 8.5 fl (7.4-10.4); MONOCYTES % 13.5 % (2.0-8.0); NEUTROPHILS % 73.2 % (40.0-76.0); PLATELET 194 x1000/uL (130-400); RED BLOOD CELL COUNT 3.74 mill/uL (4.7-6.1)
[2022-08-26 05:40] LABS: CHLORIDE 104 mEq/L (98-107)
[2022-08-26 06:09] LABS: HDL CHOLESTEROL 51 mg/dL (40-59); LDL CHOLESTEROL 63 mg/dL (5-100)
[2022-08-26] MEDS: BLOOD SUGAR DIAGNOSTIC STRIP TEST SCH ×4 (06:47→21:00)
[2022-08-26] MEDS: INSULIN LISPRO 100 UNITS/ML SUBCUT SCH ×4 (07:00→21:00)
[2022-08-26 10:59] VITALS: BP 145/106
[2022-08-26 11:17] LABS: BG BASE EXCESS 0.3 mmol/L (-2.0-2.0); BG CARBOXYHEMOGLOBIN 0.6 % (0.5-1.5); BG DEOXYHEMOGLOBIN 0.9 % (0.0-5.0); BG FRACTION INSPIRED OXYGEN 50; BG HCO3 ACT 23.6 mmol/L (22.0-26.0); BG METHEMOGLOBIN 0.1 % (0.0-1.5); BG OXYGEN SATURATION 99.1 % (92.0-98.5); BG OXYHEMOGLOBIN 98.4 % (94.0-97.0); BG PCO2 33.9 mmHg (35.0-45.0); BG PO2 146.8 mmHg (75.0-100.0); BG SAMPLE SITE LEFT RADIAL; BG TOTAL HEMOGLOBIN 13.2 g/dL (12.0-18.0); BG VENT MODE VENT - AC
[2022-08-26 12:00] VITALS: BP_SYST 137; BP_SYST 145; BP_DIAS 106; BP_DIAS 91
[2022-08-26] MEDS: ACETAMINOPHEN 650MG/20.3ML UDC GT PRN (13:24)
[2022-08-26] MEDS: PANTOPRAZOLE SODIUM 40 MG/VIAL IV SCH (13:25)
[2022-08-26] MEDS: AMLODIPINE 10MG TABLET PO SCH (13:44)
[2022-08-26] MEDS: ENOXAPARIN 40MG/0.4ML SYR SUBCUT SCH (13:45)
[2022-08-26 14:00] VITALS: BP 139/97
[2022-08-26] MEDS ORDERED: ALBUTEROL (0.083%) 2.5MG/3ML NEB HHN PRN (14:45)
[2022-08-26] MEDS ORDERED: IPRATROPIUM BROMIDE (0.02%) 0.5MG/2.5ML NEB HHN PRN (14:45)
[2022-08-26] MEDS ORDERED: IPRATROPIUM/ALBUTEROL 0.5-3(2.5)MG/3ML NEB HHN PRN (14:45)
[2022-08-26 16:00] VITALS: BP 111/83
[2022-08-26] MEDS: CEFTRIAXONE 1,000 MG in DEXTROSE 5% WATER 50 ML IV SCH (17:07)
[2022-08-26] MEDS ORDERED: IPRATROPIUM/ALBUTEROL 0.5-3(2.5)MG/3ML NEB HHN SCH (18:00)
[2022-08-26 20:00] VITALS: BP 134/98
[2022-08-26] MEDS: ALBUTEROL (0.083%) 2.5MG/3ML NEB HHN SCH (20:47)
[2022-08-26] MEDS: IPRATROPIUM BROMIDE (0.02%) 0.5MG/2.5ML NEB HHN SCH (20:47)
[2022-08-26 22:00] VITALS: BP 112/85
[2022-08-27] VITALS (12 sets, daily range): BP systolic 94–196; BP diastolic 48–87
[2022-08-27] MEDS: ACETAMINOPHEN 650MG/20.3ML UDC GT PRN (00:52)
[2022-08-27] MEDS: ALBUTEROL (0.083%) 2.5MG/3ML NEB HHN SCH ×3 (01:40→20:38)
[2022-08-27] MEDS: IPRATROPIUM BROMIDE (0.02%) 0.5MG/2.5ML NEB HHN SCH ×3 (01:41→20:39)
[2022-08-27] MEDS: INSULIN LISPRO 100 UNITS/ML SUBCUT SCH ×4 (08:00→21:00)
[2022-08-27] MEDS: BLOOD SUGAR DIAGNOSTIC STRIP TEST SCH ×4 (08:13→21:00)
[2022-08-27] MEDS: CEFTRIAXONE 1,000 MG in DEXTROSE 5% WATER 50 ML IV SCH (10:41)
[2022-08-27] MEDS: PANTOPRAZOLE SODIUM 40 MG/VIAL IV SCH (10:41)
[2022-08-27] MEDS: AMLODIPINE 10MG TABLET PO SCH (10:43)
[2022-08-27] MEDS: CLONIDINE 0.1MG TABLET PO PRN ×2 (10:46→17:59)
[2022-08-27] MEDS: ENOXAPARIN 40MG/0.4ML SYR SUBCUT SCH (12:51)
[2022-08-27] MEDS: SODIUM CHLORIDE 0.45% 1,000 ML IV SCH (12:51)
[2022-08-28] VITALS (13 sets, daily range): BP systolic 89–127; BP diastolic 52–73
[2022-08-28] MEDS: IPRATROPIUM BROMIDE (0.02%) 0.5MG/2.5ML NEB HHN SCH ×4 (02:17→20:50)
[2022-08-28] MEDS: ALBUTEROL (0.083%) 2.5MG/3ML NEB HHN SCH ×4 (02:17→20:50)
[2022-08-28] MEDS: SODIUM CHLORIDE 0.45% 1,000 ML IV SCH ×2 (05:14→23:45)
[2022-08-28] MEDS: BLOOD SUGAR DIAGNOSTIC STRIP TEST SCH ×4 (07:30→20:24)
[2022-08-28] MEDS: INSULIN LISPRO 100 UNITS/ML SUBCUT SCH ×4 (08:00→20:33)
[2022-08-28 08:59] LABS: BG BASE EXCESS 2.5 mmol/L (-2.0-2.0); BG CARBOXYHEMOGLOBIN 0.3 % (0.5-1.5); BG DEOXYHEMOGLOBIN 1.4 % (0.0-5.0); BG FRACTION INSPIRED OXYGEN 35; BG HCO3 ACT 26.7 mmol/L (22.0-26.0); BG METHEMOGLOBIN 0.1 % (0.0-1.5); BG OXYGEN SATURATION 98.6 % (92.0-98.5); BG OXYHEMOGLOBIN 98.2 % (94.0-97.0); BG PH 7.443 (7.350-7.450); BG PO2 134.2 mmHg (75.0-100.0); BG SAMPLE SITE RIGHT RADIAL; BG TOTAL HEMOGLOBIN 10.2 g/dL (12.0-18.0); BG VENT MODE VENT - AC
[2022-08-28] MEDS: CEFTRIAXONE 1,000 MG in DEXTROSE 5% WATER 50 ML IV SCH (09:15)
[2022-08-28] MEDS: PANTOPRAZOLE SODIUM 40 MG/VIAL IV SCH (09:16)
[2022-08-28] MEDS: LEVETIRACETAM 500MG/5ML CUP PO SCH ×2 (09:20→20:24)
[2022-08-28] MEDS: AMLODIPINE 10MG TABLET PO SCH (09:20)
[2022-08-28] MEDS: ENOXAPARIN 40MG/0.4ML SYR SUBCUT SCH (12:07)
[2022-08-28] MEDS: ACETAMINOPHEN 650MG/20.3ML UDC GT PRN (15:51)
[2022-08-28] MEDS: FAMOTIDINE 20MG/2ML VIAL IV SCH (20:27)
[2022-08-29] VITALS (15 sets, daily range): BP systolic 91–133; BP diastolic 56–85
[2022-08-29] MEDS: IPRATROPIUM BROMIDE (0.02%) 0.5MG/2.5ML NEB HHN SCH ×4 (01:11→20:09)
[2022-08-29] MEDS: ALBUTEROL (0.083%) 2.5MG/3ML NEB HHN SCH ×4 (01:11→20:09)
[2022-08-29] MEDS: ACETAMINOPHEN 650MG/20.3ML UDC GT PRN ×2 (04:50→21:38)
[2022-08-29] MEDS: INSULIN LISPRO 100 UNITS/ML SUBCUT SCH ×4 (08:00→21:00)
[2022-08-29] MEDS: BLOOD SUGAR DIAGNOSTIC STRIP TEST SCH ×4 (08:15→21:00)
[2022-08-29] MEDS: LEVETIRACETAM 500MG/5ML CUP PO SCH ×2 (08:25→21:37)
[2022-08-29] MEDS: CEFTRIAXONE 1,000 MG in DEXTROSE 5% WATER 50 ML IV SCH (08:25)
[2022-08-29] MEDS: FAMOTIDINE 20MG/2ML VIAL IV SCH ×2 (08:25→21:37)
[2022-08-29] MEDS: AMLODIPINE 10MG TABLET PO SCH (08:27)
[2022-08-29] MEDS ORDERED: PIPERACILLIN/TAZOBACTAM 3.375 G in DEXTROSE 5% WATER 50 ML IV SCH (10:00)
[2022-08-29 12:06] LABS: BASOPHILS % 0.2 % (0.0-2.0); EOSINOPHILS % 1.8 % (0.0-5.0); HEMATOCRIT. 27.6 % (42.0-52.0); HEMOGLOBIN. 8.8 g/dL (14.0-18.0); LYMPHOCYTES % 11.4 % (20.0-50.0); MEAN CORPUSCULAR HEMOGLOBIN 29.8 pg (28.0-32.0); MEAN CORPUSCULAR VOLUME 93.8 fL (80.0-94.0); MEAN PLATELET VOLUME 8.3 fl (7.4-10.4); MONOCYTES % 10.5 % (2.0-8.0); NEUTROPHILS % 76.1 % (40.0-76.0); PLATELET 171 x1000/uL (130-400); RED BLOOD CELL COUNT 2.94 mill/uL (4.7-6.1); RED CELL DISTRIBUTION WIDTH 15.3 % (11.6-14.6)
[2022-08-29] MEDS: ENOXAPARIN 40MG/0.4ML SYR SUBCUT SCH (12:13)
[2022-08-29 12:14] LABS: CHLORIDE 109 mEq/L (98-107)
[2022-08-29] MEDS: SODIUM CHLORIDE 0.45% 1,000 ML IV SCH (18:29)
[2022-08-29] MEDS: MEROPENEM 1,000 MG in SODIUM CHLORIDE 0.9% 100 ML IV SCH (21:33)
[2022-08-30] VITALS (8 sets, daily range): BP systolic 101–121; BP diastolic 71–79
[2022-08-30] MEDS: IPRATROPIUM BROMIDE (0.02%) 0.5MG/2.5ML NEB HHN SCH ×2 (02:48→08:32)
[2022-08-30] MEDS: ALBUTEROL (0.083%) 2.5MG/3ML NEB HHN SCH ×2 (02:48→08:32)
[2022-08-30] MEDS: MEROPENEM 1,000 MG in SODIUM CHLORIDE 0.9% 100 ML IV SCH ×2 (05:15→11:10)
[2022-08-30] MEDS: BLOOD SUGAR DIAGNOSTIC STRIP TEST SCH ×2 (07:22→12:09)
[2022-08-30] MEDS: INSULIN LISPRO 100 UNITS/ML SUBCUT SCH ×2 (08:00→12:09)
[2022-08-30] MEDS: FAMOTIDINE 20MG/2ML VIAL IV SCH (08:13)
[2022-08-30] MEDS: LEVETIRACETAM 500MG/5ML CUP PO SCH (08:13)
[2022-08-30] MEDS: AMLODIPINE 10MG TABLET PO SCH (08:14)
[2022-08-30] MEDS: SODIUM CHLORIDE 0.45% 1,000 ML IV SCH (08:14)
[2022-08-30] MEDS: ENOXAPARIN 40MG/0.4ML SYR SUBCUT SCH (13:02)
[2022-08-30] MEDS: ACETAMINOPHEN 650MG/20.3ML UDC GT PRN (14:39)
== END 2022-08-30 15:55 | DRG 720 ==
LOC: ER 08:11 → MICUSO 11:16 → 5EST 08-26 10:05
PROVIDERS: ADMIT Hospitalist; ATTEND Hospitalist
PROC: 5A1955Z Respiratory Ventilation, Greater than 96 Consecutive Hours (ICD-10-PCS; principal; 2022-08-25)
PROC: 4A00X4Z Measurement of Central Nervous Electrical Activity, External Approach (ICD-10-PCS; 2022-08-28)
DX: A41.59 Other Gram-negative sepsis (principal); G93.40 Encephalopathy, unspecified; J15.6 Pneumonia due to other Gram-negative bacteria; L89.154 Pressure ulcer of sacral region, stage 4; E46 Unspecified protein-calorie malnutrition; J96.10 Chronic respiratory failure, unspecified whether with hypoxia or hypercapnia; N39.0 Urinary tract infection, site not specified; E11.9 Type 2 diabetes mellitus without complications; R13.10 Dysphagia, unspecified; G40.909 Epilepsy, unspecified, not intractable, without status epilepticus; R25.1 Tremor, unspecified; B96.1 Klebsiella pneumoniae [K. pneumoniae] as the cause of diseases classified elsewhere; B96.4 Proteus (mirabilis) (morganii) as the cause of diseases classified elsewhere; Z16.12 Extended spectrum beta lactamase (ESBL) resistance; Z93.0 Tracheostomy status; Z93.1 Gastrostomy status; Z99.11 Dependence on respirator [ventilator] status; Z74.01 Bed confinement status; Z68.23 Body mass index [BMI] 23.0-23.9, adult; Z86.73 Personal history of transient ischemic attack (TIA), and cerebral infarction without residual deficits
CPT/HCPCS: 36415; 36600; 71045; 80053; 80061; 81003; 82040; 82375; 82805; 82962; 83036; 83605; 84134; 84145; 84484; 85025; 87070; 87077; 87186; 87426; 93005; 93970; 94002; 94003; 94640; 95816; 99285; C9113; J0456; J0696; J1650; J1953; J2185; J2543; J3490; J7050; J7060

== ENCOUNTER 2023-11-15 00:17 | Inpatient (IN) | payer MEDICAID ==
[~2023-11-15] VITALS: Ht 182.9 cm; Wt 68.5 kg
[2023-11-15] VITALS (23 sets, daily range): BP systolic 92–107; BP diastolic 67–80; PULSE 98–119; RESP 15–35; TEMP 97–98.7; O2SAT 100
[2023-11-15] MEDS: SODIUM CHLORIDE 0.9% 1000ML BAG (SEPSIS BOLUS) IV ONE
[2023-11-15 01:29] LABS: MEAN CORPUSCULAR HEMOGLOBIN 22.4 pg (28.0-32.0); MEAN CORPUSCULAR HGB CONC 28.6 g/dL (31.0-37.0); MEAN CORPUSCULAR VOLUME 78.4 fL (80.0-94.0); MEAN PLATELET VOLUME 6.5 fl (7.4-10.4); PLATELET 541 x1000/uL (130-400); RED CELL DISTRIBUTION WIDTH 20.3 % (11.6-14.6); WHITE BLOOD COUNT 23.4 x1000/uL (4.5-11.0)
[2023-11-15 01:33] LABS: DIFFERENTIAL COMMENT 1
[2023-11-15 01:36] LABS: CHLORIDE 107 mEq/L (98-107); POTASSIUM 4.5 mEq/L (3.5-5.1); SODIUM 140 mEq/L (136-145)
[2023-11-15 01:37] LABS: CALCIUM 9.1 mg/dL (8.7-10.4); CARBON DIOXIDE 25 mEq/L (21-32)
[2023-11-15 01:40] LABS: HEMATOCRIT. 18.8 % (42.0-52.0); HEMOGLOBIN. 5.4 g/dL (14.0-18.0)
[2023-11-15 01:42] LABS: CREATININE 1.8 mg/dL (0.6-1.3); GLUCOSE 109 mg/dL (70-105); UREA NITROGEN BLOOD 48 mg/dL (9-23)
[2023-11-15 01:43] LABS: TROPONIN I HIGH SENSITIVITY 17 ng/L (3.0-53)
[2023-11-15] MEDS: PIPERACILLIN/TAZO 3.375G/50ML 50 ML IV ONE (01:45)
[2023-11-15 01:50] LABS: LACTIC ACID 2.1 mmol/L (0.4-2.0)
[2023-11-15] MEDS: VANCOMYCIN 1G PREMIX 200 ML IV NR (04:00)
[2023-11-15 04:22] LABS: ATYPICAL LYMPHOCYTES 1; HYPOCHROMASIA 2+; PLATELET ESTIMATE SLIGHTLY INCREASED
[2023-11-15 04:23] LABS: GIANT PLATELETS FEW; TARGET CELLS 3+
[2023-11-15] MEDS: VANCOMYCIN 1G PREMIX 200 ML IV ONE (05:32)
[2023-11-15] MEDS ORDERED: AZITHROMYCIN 500MG/250ML 250 ML IV SCH (09:00)
[2023-11-15] MEDS ORDERED: MEROPENEM 1G/100ML 100 ML IV SCH (10:00)
[2023-11-15 12:52] LABS: BG BASE EXCESS 0.4 mmol/L (-2.0-2.0); BG CARBOXYHEMOGLOBIN 0.5 % (0.5-1.5); BG DEOXYHEMOGLOBIN 1.6 % (0.0-5.0); BG FRACTION INSPIRED OXYGEN 40; BG HCO3 ACT 23.7 mmol/L (22.0-26.0); BG METHEMOGLOBIN 0.3 % (0.0-1.5); BG OXYGEN SATURATION 98.4 % (92.0-98.5); BG OXYHEMOGLOBIN 97.6 % (94.0-97.0); BG PCO2 31.9 mmHg (35.0-45.0); BG PH 7.488 (7.350-7.450); BG PO2 109.3 mmHg (75.0-100.0); BG SAMPLE SITE RIGHT RADIAL; BG TOTAL HEMOGLOBIN 6.8 g/dL (12.0-18.0); BG TOTAL RESPIRATORY RATE 23 b/min; BG VENT MODE VENT - AC
[2023-11-15] MEDS: LACTATED RINGERS 1,000 ML IV ONE (14:05)
[2023-11-15] MEDS: MEROPENEM 1G/100ML 100 ML IV SCH (16:54)
[2023-11-15] MEDS: AZITHROMYCIN 500MG/250ML 250 ML IV SCH (16:54)
[2023-11-15] MEDS: IPRATROPIUM/ALBUTEROL 0.5-3(2.5)MG/3ML NEB HHN SCH (20:40)
[2023-11-15 21:28] LABS: HEMATOCRIT 27.5 % (42.0-52.0); HEMOGLOBIN 8.1 g/dL (14.0-18.0); MEAN CORPUSCULAR HEMOGLOBIN 24.6 pg (28.0-32.0); MEAN CORPUSCULAR HGB CONC 29.3 g/dL (31.0-37.0); MEAN CORPUSCULAR VOLUME 83.8 fL (80.0-94.0); PLATELET 432 x1000/uL (130-400); RED BLOOD CELL COUNT 3.28 mill/uL (4.7-6.1); RED CELL DISTRIBUTION WIDTH 19.8 % (11.6-14.6); WHITE BLOOD COUNT 21.3 x1000/uL (4.5-11.0)
[2023-11-15] MEDS: VANCOMYCIN 500MG/100ML IV NR (21:32)
[2023-11-15] MEDS ORDERED: ONDANSETRON HCL 4MG/2ML INJ IV PRN (23:45)
[2023-11-15] MEDS ORDERED: IPRATROPIUM/ALBUTEROL 0.5-3(2.5)MG/3ML NEB NEB PRN (23:45)
[2023-11-16] VITALS (27 sets, daily range): BP systolic 92–131; BP diastolic 70–91; PULSE 68–120; RESP 11–38; TEMP 97.6–101.3
[2023-11-16] MEDS: SODIUM CHLORIDE 0.9% 1,000 ML IV SCH (00:37)
[2023-11-16 06:56] LABS: HEMATOCRIT. 21.1 % (42.0-52.0); MEAN CORPUSCULAR HEMOGLOBIN 23.7 pg (28.0-32.0); MEAN CORPUSCULAR HGB CONC 30.2 g/dL (31.0-37.0); MEAN CORPUSCULAR VOLUME 78.7 fL (80.0-94.0); PLATELET 418 x1000/uL (130-400); RED BLOOD CELL COUNT 2.68 mill/uL (4.7-6.1); RED CELL DISTRIBUTION WIDTH 19.4 % (11.6-14.6)
[2023-11-16 07:03] LABS: CHLORIDE 113 mEq/L (98-107); POTASSIUM 3.4 mEq/L (3.5-5.1); SODIUM 146 mEq/L (136-145)
[2023-11-16 07:04] LABS: CARBON DIOXIDE 25 mEq/L (21-32)
[2023-11-16 07:05] LABS: CALCIUM 9.5 mg/dL (8.7-10.4)
[2023-11-16 07:08] LABS: CREATINE KINASE MB FRACTION 1.3 ng/mL (0.5-3.6); TROPONIN I HIGH SENSITIVITY 5 ng/L (3.0-53)
[2023-11-16 07:09] LABS: CREATININE 1.1 mg/dL (0.6-1.3)
[2023-11-16 07:10] LABS: CREATINE KINASE 45 IU/L (46-171); GLUCOSE 73 mg/dL (70-105); UREA NITROGEN BLOOD 33 mg/dL (9-23)
[2023-11-16 08:02] LABS: DIFFERENTIAL COMMENT 1
[2023-11-16 08:03] LABS: HEMOGLOBIN. 6.4 g/dL (14.0-18.0)
[2023-11-16] MEDS: PANTOPRAZOLE SODIUM 40 MG/VIAL IV SCH (09:13)
[2023-11-16] MEDS: VANCOMYCIN 750MG PREMIX 150 ML IV SCH (12:44)
[2023-11-16 13:36] LABS: MICROCYTOSIS 2+; PLATELET ESTIMATE SLIGHTLY INCREASED
[2023-11-16 13:37] LABS: ANISOCYTOSIS 2+
[2023-11-16 16:01] LABS: CREATINE KINASE MB FRACTION 1.2 ng/mL (0.5-3.6)
[2023-11-16 16:02] LABS: CREATINE KINASE 55 IU/L (46-171)
[2023-11-16 16:04] LABS: TROPONIN I HIGH SENSITIVITY < 4 ng/L (3.0-53)
[2023-11-16] MEDS: MEROPENEM 1G/100ML IV SCH (17:53)
[2023-11-16] MEDS: SODIUM HYPOCHLORITE 0.125% 473ML SOLUTION TOP SCH (21:00)
[2023-11-17] VITALS (29 sets, daily range): BP systolic 102–151; BP diastolic 68–99; PULSE 87–120; RESP 20–45; TEMP 97.5–101.8
[2023-11-17] MEDS: ACETAMINOPHEN 325MG TABLET PO PRN (01:26)
[2023-11-17 04:02] LABS: CHLORIDE 117 mEq/L (98-107); POTASSIUM 3.3 mEq/L (3.5-5.1); SODIUM 147 mEq/L (136-145)
[2023-11-17 04:03] LABS: CALCIUM 9.2 mg/dL (8.7-10.4); CARBON DIOXIDE 22 mEq/L (21-32); INR 1.1
[2023-11-17 04:08] LABS: CREATININE 0.9 mg/dL (0.6-1.3); GLUCOSE 92 mg/dL (70-105); UREA NITROGEN BLOOD 22 mg/dL (9-23)
[2023-11-17 05:23] LABS: MEAN CORPUSCULAR HEMOGLOBIN 23.6 pg (28.0-32.0); MEAN CORPUSCULAR HGB CONC 29.2 g/dL (31.0-37.0); MEAN PLATELET VOLUME 7.4 fl (7.4-10.4); PLATELET 390 x1000/uL (130-400); RED BLOOD CELL COUNT 2.35 mill/uL (4.7-6.1); RED CELL DISTRIBUTION WIDTH 19.7 % (11.6-14.6); WHITE BLOOD COUNT 15.8 x1000/uL (4.5-11.0)
[2023-11-17 06:49] LABS: DIFFERENTIAL COMMENT 1
[2023-11-17 06:52] LABS: HEMOGLOBIN. 5.6 g/dL (14.0-18.0)
[2023-11-17] MEDS: SODIUM HYPOCHLORITE 0.125% 473ML SOLUTION TOP SCH (11:30)
[2023-11-17 13:27] LABS: PREALBUMIN < 5.0 mg/dl (10.0-40.0)
[2023-11-17 17:17] LABS: ANISOCYTOSIS 1+; HYPOCHROMASIA 1+; PLATELET ESTIMATE NORMAL
[2023-11-17] MEDS: POTASSIUM CHLORIDE 20MEQ/PACKET GT NR (20:51)
[2023-11-17 21:08] LABS: HEMATOCRIT 22.1 % (42.0-52.0)
[2023-11-17 21:19] LABS: HEMOGLOBIN 6.7 g/dL (14.0-18.0)
[2023-11-17] MEDS: LORAZEPAM 2MG/ML INJ IV PRN (23:53)
[2023-11-18] VITALS (29 sets, daily range): BP systolic 103–152; BP diastolic 60–102; PULSE 96–140; RESP 16–55; TEMP 97.5–99.3
[2023-11-18] MEDS: ACETYLCYSTEINE 100MG/ML 10% VIAL 4ML INH SCH (01:22)
[2023-11-18] MEDS: SODIUM CHLORIDE 0.9% 500 ML IV ONE (02:30)
[2023-11-18 03:05] LABS: BG BASE EXCESS -1.8 mmol/L (-2.0-2.0); BG CARBOXYHEMOGLOBIN 0.4 % (0.5-1.5); BG DEOXYHEMOGLOBIN 0.3 % (0.0-5.0); BG FRACTION INSPIRED OXYGEN 100; BG HCO3 ACT 20.9 mmol/L (22.0-26.0); BG METHEMOGLOBIN 0.6 % (0.0-1.5); BG OXYGEN SATURATION 99.7 % (92.0-98.5); BG OXYHEMOGLOBIN 98.7 % (94.0-97.0); BG PCO2 27.8 mmHg (35.0-45.0); BG PH 7.495 (7.350-7.450); BG PO2 450.8 mmHg (75.0-100.0); BG TOTAL HEMOGLOBIN 8.3 g/dL (12.0-18.0); BG VENT MODE VENT - AC
[2023-11-18] MEDS: KETOROLAC 30MG/ML VIAL IV NR (03:35)
[2023-11-18] MEDS: MORPHINE SULFATE 2 MG/ML CPJ (NOT FOR IM USE) IV PRN (03:36)
[2023-11-18 07:16] LABS: HEMATOCRIT. 23.5 % (42.0-52.0); MEAN CORPUSCULAR HEMOGLOBIN 23.4 pg (28.0-32.0); MEAN CORPUSCULAR HGB CONC 29.3 g/dL (31.0-37.0); MEAN CORPUSCULAR VOLUME 79.8 fL (80.0-94.0); MEAN PLATELET VOLUME 7.1 fl (7.4-10.4); PLATELET 411 x1000/uL (130-400); RED BLOOD CELL COUNT 2.94 mill/uL (4.7-6.1); RED CELL DISTRIBUTION WIDTH 20.1 % (11.6-14.6); WHITE BLOOD COUNT 30.5 x1000/uL (4.5-11.0)
[2023-11-18 07:31] LABS: CARBON DIOXIDE 21 mEq/L (21-32); CHLORIDE 116 mEq/L (98-107); POTASSIUM 3.5 mEq/L (3.5-5.1); SODIUM 146 mEq/L (136-145)
[2023-11-18 07:32] LABS: CALCIUM 9.8 mg/dL (8.7-10.4)
[2023-11-18 07:33] LABS: D-DIMER 4.84 mg/L FEU (<0.50); INR 1.1; PROTHROMBIN TIME 12.5 sec (9.6-11.0)
[2023-11-18 07:37] LABS: CREATININE 0.9 mg/dL (0.6-1.3); GLUCOSE 77 mg/dL (70-105); UREA NITROGEN BLOOD 16 mg/dL (9-23)
[2023-11-18 07:39] LABS: ALANINE AMINOTRANSFERASE 19 IU/L (10-49); ALBUMIN 3.4 g/dL (3.2-4.8); ASPARTATE AMINOTRANSFERASE 15 IU/L (<34); PROTEIN TOTAL 7.5 g/dL (6.0-8.3)
[2023-11-18 07:42] LABS: FERRITIN 801 ng/mL (22-322); FOLIC ACID (FOLATE) SERUM 18.53 ng/mL (>5.38)
[2023-11-18 07:43] LABS: VITAMIN B12 SERUM 1108 pg/mL (211-911)
[2023-11-18 08:15] LABS: IRON 16 ug/dL (65-175)
[2023-11-18 08:18] LABS: TOTAL IRON BINDING CAPACITY 421 ug/dl (250-425)
[2023-11-18 09:30] LABS: DIFFERENTIAL COMMENT 1
[2023-11-18 09:33] LABS: HEMOGLOBIN. 6.9 g/dL (14.0-18.0)
[2023-11-18] MEDS ORDERED: NALOXONE HCL 0.4MG/ML VIAL IV PRN (17:00)
[2023-11-18 18:02] LABS: HEMATOCRIT 25.5 % (42.0-52.0); HEMOGLOBIN 7.4 g/dL (14.0-18.0)
[2023-11-18 19:54] LABS: CLARITY URINE CLOUDY (CLEAR); COLOR URINE DARK YELLOW (YELLOW); GLUCOSE URINE NEGATIVE (NEGATIVE); KETONES URINE TRACE (NEGATIVE); LEUKOCYTE ESTERASE URINE TRACE (NEGATIVE); NITRITE URINE NEGATIVE (NEGATIVE); OCCULT BLOOD URINE TRACE (NEGATIVE); PROTEIN URINE 2+ (NEGATIVE); SPECIFIC GRAVITY URINE 1.022 (1.005-1.030)
[2023-11-18 20:39] LABS: BACTERIA URINE 2+; RBC URINE 0-2 /hpf (0-2); SQUAMOUS EPITHELIAL CELL URINE FEW /lpf (RARE/1+)
[2023-11-18 20:41] LABS: AMORPHOUS SEDIMENT URINE 1+ /lpf; WBC URINE 0-2 /hpf (0-2)
[2023-11-18 22:06] LABS: ANISOCYTOSIS 1+; PLATELET ESTIMATE SLIGHTLY INCREASED
[2023-11-18 22:07] LABS: HYPOCHROMASIA 1+; MICROCYTOSIS 1+
[2023-11-19] VITALS (28 sets, daily range): BP systolic 110–133; BP diastolic 60–93; PULSE 20–108; RESP 18–39; TEMP 96.4–100.1
[2023-11-19 07:44] LABS: CHLORIDE 114 mEq/L (98-107); POTASSIUM 3.4 mEq/L (3.5-5.1); SODIUM 146 mEq/L (136-145)
[2023-11-19 07:45] LABS: CALCIUM 9.6 mg/dL (8.7-10.4); CARBON DIOXIDE 24 mEq/L (21-32)
[2023-11-19 07:50] LABS: CREATININE 0.8 mg/dL (0.6-1.3); GLUCOSE 105 mg/dL (70-105); UREA NITROGEN BLOOD 21 mg/dL (9-23)
[2023-11-19 07:51] LABS: ALANINE AMINOTRANSFERASE 11 IU/L (10-49); ALBUMIN 2.7 g/dL (3.2-4.8); ASPARTATE AMINOTRANSFERASE 12 IU/L (<34)
[2023-11-19 07:52] LABS: BILIRUBIN TOTAL 1.3 mg/dL (0.1-1.0); PROTEIN TOTAL 6.5 g/dL (6.0-8.3)
[2023-11-19 08:07] LABS: HEMATOCRIT. 23.1 % (42.0-52.0); MEAN CORPUSCULAR HEMOGLOBIN 24.7 pg (28.0-32.0); MEAN CORPUSCULAR HGB CONC 30.3 g/dL (31.0-37.0); MEAN CORPUSCULAR VOLUME 81.6 fL (80.0-94.0); MEAN PLATELET VOLUME 7.3 fl (7.4-10.4); PLATELET 346 x1000/uL (130-400); RED BLOOD CELL COUNT 2.83 mill/uL (4.7-6.1); RED CELL DISTRIBUTION WIDTH 19.1 % (11.6-14.6); WHITE BLOOD COUNT 25.2 x1000/uL (4.5-11.0)
[2023-11-19 08:24] LABS: DIFFERENTIAL COMMENT 1
[2023-11-19 17:24] LABS: ANISOCYTOSIS 1+; PLATELET ESTIMATE NORMAL
[2023-11-20] VITALS (21 sets, daily range): BP systolic 120–163; BP diastolic 77–90; PULSE 101–123; RESP 22–41; TEMP 96.6–100.7
[2023-11-20 10:02] LABS: HEMATOCRIT 27.4 % (42.0-52.0); HEMOGLOBIN 8.1 g/dL (14.0-18.0); MEAN CORPUSCULAR HEMOGLOBIN 25.5 pg (28.0-32.0); MEAN CORPUSCULAR HGB CONC 29.6 g/dL (31.0-37.0); MEAN CORPUSCULAR VOLUME 86.1 fL (80.0-94.0); RED BLOOD CELL COUNT 3.18 mill/uL (4.7-6.1); RED CELL DISTRIBUTION WIDTH 20.2 % (11.6-14.6); WHITE BLOOD COUNT 17.4 x1000/uL (4.5-11.0)
[2023-11-20 10:11] LABS: CHLORIDE 116 mEq/L (98-107); POTASSIUM 3.7 mEq/L (3.5-5.1); SODIUM 147 mEq/L (136-145)
[2023-11-20 10:12] LABS: CARBON DIOXIDE 23 mEq/L (21-32)
[2023-11-20 10:17] LABS: CREATININE 0.7 mg/dL (0.6-1.3); GLUCOSE 125 mg/dL (70-105); UREA NITROGEN BLOOD 21 mg/dL (9-23)
[2023-11-20 14:17] LABS: PLATELET 310 x1000/uL (130-400)
[2023-11-21] VITALS (19 sets, daily range): BP systolic 133–157; BP diastolic 77–91; PULSE 93–117; RESP 24–40; TEMP 97.7–100.3
[2023-11-21 07:44] LABS: CARBON DIOXIDE 25 mEq/L (21-32); CHLORIDE 116 mEq/L (98-107); POTASSIUM 3.6 mEq/L (3.5-5.1); SODIUM 148 mEq/L (136-145)
[2023-11-21 07:45] LABS: CALCIUM 9.2 mg/dL (8.7-10.4)
[2023-11-21 07:49] LABS: CREATININE 0.7 mg/dL (0.6-1.3)
[2023-11-21 07:50] LABS: GLUCOSE 117 mg/dL (70-105); UREA NITROGEN BLOOD 20 mg/dL (9-23)
[2023-11-21 07:58] LABS: HEMATOCRIT. 25.3 % (42.0-52.0); HEMOGLOBIN. 7.7 g/dL (14.0-18.0); MEAN CORPUSCULAR HEMOGLOBIN 25.1 pg (28.0-32.0); MEAN CORPUSCULAR HGB CONC 30.6 g/dL (31.0-37.0); MEAN CORPUSCULAR VOLUME 82.1 fL (80.0-94.0); MEAN PLATELET VOLUME 7.5 fl (7.4-10.4); PLATELET 359 x1000/uL (130-400); RED BLOOD CELL COUNT 3.09 mill/uL (4.7-6.1); RED CELL DISTRIBUTION WIDTH 19.8 % (11.6-14.6); WHITE BLOOD COUNT 15.7 x1000/uL (4.5-11.0)
[2023-11-21 08:02] LABS: DIFFERENTIAL COMMENT 1
[2023-11-21 13:19] LABS: ANISOCYTOSIS 2+; PLATELET ESTIMATE NORMAL
[2023-11-21 13:20] LABS: HYPOCHROMASIA 1+
[2023-11-22] VITALS (60 sets, daily range): BP systolic 139–162; BP diastolic 76–87; PULSE 89–110; RESP 13–32; TEMP 98.4–98.9
[2023-11-22] MEDS: ACETYLCYSTEINE 200MG/ML 20% VIAL 4ML INH SCH (00:26)
[2023-11-22] MEDS: IPRATROPIUM/ALBUTEROL 0.5-3(2.5)MG/3ML NEB HHN PRN (00:26)
[2023-11-22] MEDS ORDERED: LIDOCAINE HCL 1% 10 MG/ML 10ML VIAL ONE (08:18)
== END 2023-11-22 22:00 | DRG 720 ==
LOC: ER 00:17 → 5EST 01:54 → EDBEDREQ 02:01
PROVIDERS: ADMIT Internal Medicine; ATTEND Internal Medicine
PROC: 30233N1 Transfusion of Nonautologous Red Blood Cells into Peripheral Vein, Percutaneous Approach (ICD-10-PCS; principal; 2023-11-15)
PROC: 5A1955Z Respiratory Ventilation, Greater than 96 Consecutive Hours (ICD-10-PCS; 2023-11-22)
PROC: 0BH18EZ Insertion of Endotracheal Airway into Trachea, Via Natural or Artificial Opening Endoscopic (ICD-10-PCS; 2023-11-22)
PROC: 05HN33Z Insertion of Infusion Device into Left Internal Jugular Vein, Percutaneous Approach (ICD-10-PCS; 2023-11-22)
PROC: B544ZZA Ultrasonography of Left Jugular Veins, Guidance (ICD-10-PCS; 2023-11-22)
DX: A41.9 Sepsis, unspecified organism (principal); J96.21 Acute and chronic respiratory failure with hypoxia; N17.0 Acute kidney failure with tubular necrosis; R65.21 Severe sepsis with septic shock; L89.154 Pressure ulcer of sacral region, stage 4; E46 Unspecified protein-calorie malnutrition; I11.0 Hypertensive heart disease with heart failure; L89.523 Pressure ulcer of left ankle, stage 3; I50.9 Heart failure, unspecified; E11.9 Type 2 diabetes mellitus without complications; D50.9 Iron deficiency anemia, unspecified; Z66 Do not resuscitate; Z93.0 Tracheostomy status; Z99.11 Dependence on respirator [ventilator] status; R31.0 Gross hematuria; Z86.73 Personal history of transient ischemic attack (TIA), and cerebral infarction without residual deficits; I25.10 Atherosclerotic heart disease of native coronary artery without angina pectoris; I48.91 Unspecified atrial fibrillation; R56.9 Unspecified convulsions; R13.12 Dysphagia, oropharyngeal phase; Z93.1 Gastrostomy status; Z68.20 Body mass index [BMI] 20.0-20.9, adult; Z74.01 Bed confinement status; Z51.5 Encounter for palliative care; L98.492 Non-pressure chronic ulcer of skin of other sites with fat layer exposed; Z20.822 Contact with and (suspected) exposure to COVID-19
CPT/HCPCS: 36415; 36573; 36600; 71045; 74176; 80048; 80053; 80202; 81003; 82040; 82375; 82550; 82553; 82607; 82728; 82746; 82805; 82962; 83540; 83550; 83605; 83880; 84134; 84145; 84484; 85014; 85018; 85025; 85027; 85044; 85379; 85384; 86850; 86900; 86920; 87070; 87077; 87186; 87426; 87804; 93005; 93306; 93971; 94003; 94640; 99291; A6261; C1725; C9113; J0456; J1885; J2060; J2185; J2270; J2543; J3370; J3490; J7030; J7608; P9016